=== PATIENT | male | born 1950 | race Hispanic/Latino ===

== ENCOUNTER → 2019-12-10 | Outpatient (CLI) | payer MEDICARE ==
[~2019-12-10] MED LIST: LIDOCAINE HCL 4% LTA SOL 4 ML VIAL ONE
== END | disposition home or self-care (01) ==
LOC: WHH 13:30
PROVIDERS: ATTEND Specialist
DX: S61.511A Laceration without foreign body of right wrist, initial encounter (principal); I10 Essential (primary) hypertension; E78.5 Hyperlipidemia, unspecified; Z87.891 Personal history of nicotine dependence; Z88.0 Allergy status to penicillin; X58.XXXA Exposure to other specified factors, initial encounter; Y93.89 Activity, other specified; Y92.098 Other place in other non-institutional residence as the place of occurrence of the external cause; Y99.8 Other external cause status
CPT/HCPCS: A6207; G0463

== ENCOUNTER → 2019-12-17 | Outpatient (CLI) | payer MEDICARE | END | disposition home or self-care (01) | LOC: WHH 13:30 | PROVIDERS: ATTEND Specialist | DX: S61.511D Laceration without foreign body of right wrist, subsequent encounter (principal); I10 Essential (primary) hypertension; E78.5 Hyperlipidemia, unspecified; Z87.891 Personal history of nicotine dependence; Z88.0 Allergy status to penicillin; X58.XXXD Exposure to other specified factors, subsequent encounter | CPT/HCPCS: 73100; 73120; A6207; G0463 ==

== ENCOUNTER 2019-12-24 13:30 | Outpatient (CLI) | payer MEDICARE | END 2019-12-24 14:32 | disposition home or self-care (01) | LOC: WHH 13:30 | PROVIDERS: ATTEND Specialist | DX: S61.511D Laceration without foreign body of right wrist, subsequent encounter (principal); I10 Essential (primary) hypertension; E78.5 Hyperlipidemia, unspecified; Z87.891 Personal history of nicotine dependence; Z88.0 Allergy status to penicillin; X58.XXXD Exposure to other specified factors, subsequent encounter | CPT/HCPCS: G0463 ==

== ENCOUNTER 2024-07-28 12:22 | Inpatient (IN) | payer MEDICARE, OTHER ==
[~2024-07-28] VITALS: Ht 175.3 cm; Wt 82.5 kg
[~2024-07-28 12:22] MED LIST changes: +CYCL10TA16 PO; +HYDR-3421 PO; +HYDR25TA PO; +IBUP-1493 PO; -LIDOCAINE HCL 4% LTA SOL 4 ML VIAL ONE; +LIDOP TP
--- NOTE | 2024-07-28 12:44 | EKG ---
[facility] Test Date: 2024-07-28 Test Time: 12:41:44 Pat Name: CORY PIERRE Department: [facility] Room: ED Gender: M General Labor: [id number] : 1950 Requested By: KURTIS BAILEY Order Number: [id number] Reading MD: Chandler Garcia Measurements Intervals [place] Rate: 104 P: 59 MT: 131 QRS: 59 QRSD: 85 T: 55 QT: 331 QTc: 435 Interpretive Statements Sinus tachycardia No previous ECG available for comparison Electronically Signed On 07-29-2024 06:56:45 [employer] by Chandler Garcia Please click the below link to view image of tracing.
--- NOTE | 2024-07-28 12:58 | ERN ---
General Chief Complaint: Fever Stated Complaint: WANTS CHEST X-RAYS/LUNG Time Seen by MD: 12:23 Source: patient History of Present Illness Initial Comments Patient is a 73-year-old male coming in to be evaluated for fever. Per family member and patient he has been having fever for a couple of days. He was evaluated at the urgent care and was told had an upper respiratory infection. Patient does has a history of cancer in his currently on chemotherapy. Patient was to follow up at the emergency room per MD Pugh for evaluation of a pneumonia. Allergies: Coded Allergies: No Known Allergies (Unverified Allergy, Unknown, 03/04/22) Home Meds Active Scripts Ibuprofen (Motrin/Advil) 800 Mg Tab, 800 MG PO TIDP PRN for PAIN, #30 TAB Prov:GEOVANY OLIVAS MD 03/04/22 Lidocaine (Lidoderm Patch 5%) 1 Patch Patch, 1 PATCH TP DAILY PRN for PAIN, #10 ADH.PATCH Prov:GEOVANY OLIVAS MD 03/04/22 Cyclobenzaprine HCl (Flexeril) 10 Mg Tab, 10 MG PO TID, #30 TAB Prov:GEOVANY OLIVAS MD 03/04/22 Reported Medications Hydrochlorothiazide (Hydrochlorothiazide) 25 Mg Tablet, 25 MG PO DAILY, TAB 03/04/22 Hydroxyzine HCl (Hydroxyzine HCl) 25 Mg Tablet, 25 MG PO DAILY, TAB 03/04/22 Past Medical History Past Medical History: Cancer, Hepatitis Medical History Other: ESOPHAGEAL CA, METS Past Surgical History: Other Surgical History Other: HERNIA Family History Family History: HTN Social History Social History: ETOH, Lives with family ROS Dictation CONSTITUTIONAL: chills, fever, weakness, no diaphoresis, no malaise. HEAD/FACE: No signs of trauma. EENT: No eye pain, no blurred vision, no tearing, no double vision, no ear pain, no ear discharge, no nose pain, no nasal congestion, no throat pain, no throat swelling, no mouth pain. RESPIRATORY: cough, no orthopnea, no SOB, no stridor, no wheezing. CARDIOVASCULAR: No chest pain, no edema, no palpitations, no syncope. GASTROINTESTINAL/ABDOMINAL: No abdominal pain, no constipation, no diarrhea, no nausea, no vomiting. GENITOURINARY: No abnormal discharge, no dysuria, no frequent urination, no hematuria. No complaints of pain in the genitals. MUSCULOSKELETAL: No back pain, no gout, no joint pain, no joint swelling, no muscle pain, no muscle stiffness, no neck pain. INTEGUMENTARY: No change in color, no change in hair/nails, no dryness, no lesion, no lumps, no rash. NEUROLOGICAL/PSYCH: No anxiety, not depressed, no emotional problem, no headache, no numbness, no pre-existing deficit, no history of seizures, no tremors, no weakness. HEMATOLOGIC/LYMPHATIC: Not anemic, no history of blood clots, no apparent bleeding, no bruising, glands not swollen. All Systems Negative, Except as Noted. Physical Exam Physical Exam Dictation VITAL SIGNS: Reviewed. GENERAL APPEARANCE: Alert, oriented x3, no acute distress, obese. HEAD AND FACE: Non-traumatic. EYES: PERRL, pink conjunctivas, eyelid no trauma, anterior chamber clear. EARS: Pinnas intact and no signs of trauma or erythema. Ear canals clear and no discharge. TMs no erythema. NOSE: No discharge, no bleeding. OROPHARYNX: Mouth normal, teeth no caries, tongue pink. Pharynx clear, no erythema. Tonsils no exudates, no abscesses noted. Mucous membrane moist. NECK: Supple, non-tender, no thyromegaly, no masses, no JVD, no bruits. BREAST: Deferred. CHEST: No tenderness, no crepitus, no paradoxical movement, no retractions. LUNGS: Clear, well-ventilated, symmetric, no rales, no wheezing, no rhonchi, no stridor, good breath sounds bilaterally. HEART: Regular rate, regular rhythm, no murmur, no gallops. VASCULAR: No peripheral edema. ABDOMEN: Soft, positive bowel sounds, nondistended, no guarding, nontender, no rebound, no masses no hepatomegaly, no splenomegaly, no Samuels's sign, no hernias. RECTAL: Deferred. GENITAL: Deferred. NEUROLOGICAL: Normal speech, gross motor function intact, gross sensory function intact. MUSCULOSKELETAL: Neck nontender, full range of motion, back nontender, full range of motion. EXTREMITIES: Nontender, full range of motion. SKIN: Color pink, dry, no turgor, no rash, no lacerations, no abrasions, no contusions. LYMPHATICS: Deferred. Results Laboratory and Microbiology Lab and Micro Result Laboratory Tests Test 07/28/24 12:31 07/28/24 13:09 07/28/24 14:22 Influenza Type A Antigen Negative For Type A Influenza Type B Antigen Negative For Type B SARS-CoV-2, RNA, NAAT NEGATIVE SARS CoV-2 Group A Streptococcus Rapid negative (NEGATIVE) White Blood Count 0.4 K/uL (4.8-10.8) *L Red Blood Count 3.90 MIL/uL (4.50-6.20) L Hemoglobin 11.7 g/dL (14.0-18.0) L Hematocrit 33.9 % (42-54) L Mean Corpuscular Volume 86.9 fL (79-99) Mean Corpuscular Hemoglobin 30.0 pg (27.0-33.0) Mean Corpuscular Hemoglobin Concent 34.5 g/dL (32.0-36.0) Red Cell Distribution Width 14.3 % (11.0-15.5) Platelet Count 92 K/uL (130-400) L Mean Platelet Volume 10.5 fL (7.5-10.5) Immature Granulocyte % (Auto) 0.0 % (0-1) Neutrophils (%) (Auto) 7.4 % (40.0-77.0) L Lymphocytes (%) (Auto) 78.0 % (21.0-51.0) H Monocytes (%) (Auto) 12.2 % (3.0-13.0) Eosinophils (%) (Auto) 0.0 % (0.0-8.0) Basophils (%) (Auto) 2.4 % (0.0-5.0) Neutrophils # (Auto) 0.0 K/uL (1.8-7.7) L Lymphocytes # (Auto) 0.3 K/uL (1.0-4.8) L Monocytes # (Auto) 0.1 K/uL (0.1-1.0) Eosinophils # (Auto) 0.00 K/uL (0.00-0.70) Basophils # (Auto) 0.01 K/uL (0.00-0.20) Absolute Immature Granulocyte (auto 0.00 K/uL (0-1) Segmented Neutrophils % 8 % (40-70) L Band Neutrophils % 2 % (0-2) Lymphocytes % (Manual) 69 % (22-44) H Monocytes % (Manual) 12 % (2-9) H Eosinophils % (Manual) 2 % (1-6) Basophils % (Manual) 2 % (0-2) Metamyelocytes % 1 % (0-0) H Nucleated Red Blood Cells 0.0 % (0.0-0.19) Differential Comment MANUAL DIFFERENTIAL Reactive Lymphocytes 4 % (0-0) H White Cell Morphology Comment See comments Platelet Morphology Comment DECREASED Red Blood Cell Morphology See comments Prothrombin Time 10.3 SEC (9.6-11.6) Prothromb Time International Ratio <= 0.93 (0.85-1.15) Sodium Level 123 mmol/L (136-145) L Potassium Level 3.9 mmol/L (3.5-5.1) Chloride Level 93 mmol/L (101-111) L Carbon Dioxide Level 26 mmol/L (21-32) Blood Urea Nitrogen 14 mg/dL (7-18) Creatinine 0.8 mg/dL (0.5-1.3) Glomerular Filtration Rate Calc 93 mL/min (>90) Random Glucose 116 mg/dL (70-105) H Lactic Acid Level 1.7 mmol/L (0.8-2.5) Total Calcium 8.1 mg/dL (8.5-10.1) L Total Creatine Kinase 56 U/L (21-232) Troponin I High Sensitivity 26 ng/L (4-75) B-Type Natriuretic Peptide 15 pg/mL (0-100) Procalcitonin 0.41 ng/mL (0.05-0.5) Urine Color YELLOW (YELLOW) Urine Appearance CLEAR (CLEAR) Urine pH 5.5 (5.0-8.0) Urine Specific [place] 1.029 (1.001-1.031) Urine Protein 20 mg/dL (NEGATIVE) H Urine Glucose (UA) 30 mg/dL (NEGATIVE) H Urine Ketones 10 mg/dL (NEGATIVE) H Urine Occult Blood NEGATIVE (NEGATIVE) Urine Nitrate NEGATIVE (NEGATIVE) Urine Bilirubin NEGATIVE mg/dL (NEGATIVE) Urine Urobilinogen 0.2 mg/dL (0.2-1.0) Urine Leukocyte Esterase NEGATIVE Radha/uL Urine RBC 2-5 /HPF (0-1) H Urine WBC 2-5 /HPF (0-1) H Urine Squamous Epithelial Cells RARE /HPF (0-2) Urine Bacteria None /HPF (None Seen) Urine Other Casts 2 /LPF (None Seen) Labs Reviewed?: Yes EKG/XRAY/US/CT/MRI EKG Comment 07/28/2024 time 12:41 p.m. Ventricular rate 104 Sinus tachycardia [place] [address] wave elevation or depression X-RAY Comment [facility] [address] [place] [address] IMAGING REPORT Signed PATIENT: CORY PIERRE MR#: [id number] : 1950 SEX: M AGE: 73 LOCATION: [facility] ORDER [id number] STATUS: REG ER REPORT#: [id number] SERVICE 1239 REASON: fever ORDERING PHYSICIAN: KURTIS BAILEY MD PROCEDURE: CXR1VW - CHEST 1VW CHEST 1VW REASON: fever COMPARISON: None. FINDINGS: There is 2 cm well-circumscribed mass midportion of the right lung. There is some faint nodularity in the left lung which could be some smaller nodules. There are no acute appearing infiltrates. Heart size is normal. There is a chest port in place. Be some and bony thorax appear unremarkable. IMPRESSION: 1. 2 cm nodule right midlung, there may be some smaller nodules present in the left lung. 2. No evidence of an acute infiltrate. DICTATED BY: LISA CHOWDHURY MD DATE: 07/28/24 1318 ELECTRONICALLY SIGNED BY: LISA CHOWDHURY MD DATE: 07/28/24 1322 MDM MDM: DIFFERENTIAL DIAGNOSIS: SEPSIS, HISTORY OF CANCER, IMMUNODEFICIENCY RATIONALE: TESTS CONSIDERED AND ORDERED SECONDARY TO SHARED DECISION MAKING INCLUDE: PREVIOUS OUTSIDE RECORDS REVIEWED: OLD ER VISITS. RISK OF COMPLICATION AND/OR MORBIDITY OR MORTALITY OF PATIENT MANAGEMENT: NONE MEDICATIONS-PER MEDICATION RECONCILIATION NEED FOR HOSPITALIZATION: PATIENT DOES MEET CRITERIA FOR HOSPITALIZATION. NEED FOR EMERGENCY MAJOR/MINOR SURGERY: NO THERE ARE NO SOCIAL CONCERNS WITH THIS PATIENT. PRESCRIPTION DRUG MANAGEMENT PRESCRIPTIONS WILL INCLUDE SYMPTOMATIC CARE PATIENT'S PRIOR EXTERNAL MEDICAL RECORDS FROM OTHER ER VISITS WERE REVIEWED BY ME INDICATED. PRIOR TESTING AND RESULTS FROM PREVIOUS VISITS WERE REVIEWED. PRIOR TESTS WERE TAKEN INTO ACCOUNT WITH MEDICAL DECISION MAKING AND RESOURCE UTILIZATION, INDEPENDENT HISTORIAN/HISTORIANS WERE USED TO OBTAIN COMPLETE MEDICAL HISTORY. I INDEPENDENTLY INTERPRETED THE TEST THAT WERE PERFORMED, RESULTS WERE REVIEWED BY ME AND CONSIDERED FINDINGS ON RADIOLOGY IF ORDERED. MEDICAL MANAGEMENT AND EXAMINATION INTERPRETATION DISCUSSIONS WERE HAD BY ME WITH OTHER QUALIFIED HEALTHCARE PROFESSIONALS INDICATED FOR THE PATIENT'S CARE. PATIENT WILL BE ADMITTED UNDER THE CARE OF DR. RENDON FOR ONGOING EVALUATION AND MANAGEMENT OF SEPSIS WITH IMMUNODEFICIENCY ED Course Orders Procedure Category Date Status Time 12 Lead Ekg Tracing- EKG 07/28/24 Complete Technical 12:33 Cbc With Differential LAB 07/28/24 Complete 12:33 Prothrombin Time With LAB 07/28/24 Complete INR 12:33 Blood Cult LESLEE 07/28/24 In Process 12:33 Urinalysis Profile LAB 07/28/24 Complete 12:33 Culture Urine LESLEE 07/28/24 In Process 12:33 Acetaminophen 500mg PHA 07/28/24 Complete Tab (Tylenol 500mg T 13:00 Creatine Kinase, Total LAB 07/28/24 Complete 12:33 Troponin I High LAB 07/28/24 Complete Sensitivity 12:33 B-Type Natriuretic LAB 07/28/24 Complete Peptide 12:33 Procalcitonin LAB 07/28/24 Complete 12:33 Lactic Acid LAB 07/28/24 Complete 12:33 Ceftriaxone 1g Vial PHA 07/28/24 Complete (Rocephine 1g Inj) 13:00 Basic Metabolic Panel LAB 07/28/24 Complete 12:33 Covid Rna Naat LAB 07/28/24 Complete 12:33 Influenza Type A & B, LAB 07/28/24 Complete Rapid 12:33 Febrile Agglutinins LAB 07/28/24 In Process Panel 12:33 Chest 1vw RAD 07/28/24 Resulted 12:39 Rapid (Group A Strep) LAB 07/28/24 Complete 12:41 Manual Differential LAB 07/28/24 Complete 13:09 0.9%Nacl 1000ml (Ns PHA 07/28/24 Complete 1000ml) 15:30 Current Medications Medications (Trade) Dose Ordered Sig/Miriam Route PRN Reason Start Time Stop Time Status Last Admin Dose Admin Acetaminophen (TYLenol 500MG TAB) 1,000 mg ONCE ONCE PO 07/28/24 13:00 07/28/24 13:01 DC 07/28/24 14:14 Ceftriaxone Sodium (ROCEphine 1G INJ) 1 gm ONCE ONCE IVPB 07/28/24 13:00 07/28/24 13:01 DC 07/28/24 14:09 Sodium Chloride 1,000 ml @ 0 mls/hr ONCE ONCE IV 07/28/24 15:30 07/28/24 15:31 DC 07/28/24 15:27 Vital Signs Date Time Temp Pulse Resp B/P (MAP) Pulse Ox O2 Delivery O2 Flow Rate FiO2 07/28/24 16:15 99.0 89 18 110/65 98 Room Air* 0 21 07/28/24 15:31 99.1 98 18 100/65 98 Room Air* 0 21 07/28/24 14:23 99.9 107 20 117/62 98 Room Air* 0 21 07/28/24 12:33 101.1 109 20 134/68 98 Room Air 0 Critical Care Note Comments CRITICAL CARE PROCEDURE NOTE AUTHORIZED AND PERFORMED BY: TOTAL CRITICAL CARE TIME: APPROXIMATELY 36 MINUTES DUE TO A HIGH PROBABILITY OF CLINICALLY SIGNIFICANT, LIFE THREATENING DETERIORATION, THE PATIENT REQUIRED MY HIGHEST LEVEL OF PREPAREDNESS TO INTERVENE EMERGENTLY AND I PERSONALLY SPENT THIS CRITICAL CARE TIME DIRECTLY AND PERSONALLY MANAGING THE PATIENT. THIS CRITICAL CARE TIME INCLUDED OBTAINING A HISTORY; EXAMINING THE PATIENT; PULSE OXIMETRY; ORDERING AND REVIEW OF STUDIES; ARRANGING URGENT TREATMENT WITH DEVELOPMENT OF A MANAGEMENT PLAN; EVALUATION OF PATIENT'S RESPONSE TO TREATMENT; FREQUENT REASSESSMENT; AND, DISCUSSIONS WITH OTHER PROVIDERS. THIS CRITICAL CARE TIME WAS PERFORMED TO ASSESS AND MANAGE THE HIGH PROBABILITY OF IMMINENT, LIFE-THREATENING DETERIORATION THAT COULD RESULT IN MULTI-ORGAN FAILURE. IT WAS EXCLUSIVE OF SEPARATELY BILLABLE PROCEDURES AND TREATING OTHER PATIENTS AND TEACHING TIME. PLEASE SEE MDM SECTION AND THE REST OF THE NOTE FOR FURTHER INFORMATION ON PATIENT ASSESSMENT AND TREATMENT. DX & DISP Disposition: Inpatient Decision to Admit Date: Jul 28, 2024 Decision to Admit Time: 16:32 Departure Impression: Primary Impression: Sepsis Additional Impressions: Immunodeficiency, Maintenance chemotherapy Condition: Stable Referrals: AUDRA WARD MD (PCP) Time of Disposition: 16:31 KURTIS BAILEY MD Jul 28, 2024 12:58
--- NOTE | 2024-07-28 13:22 | HMCIMG ---
CHEST 1VW REASON: fever COMPARISON: None. FINDINGS: There is 2 cm well-circumscribed mass midportion of the right lung. There is some faint nodularity in the left lung which could be some smaller nodules. There are no acute appearing infiltrates. Heart size is normal. There is a chest port in place. Be some and bony thorax appear unremarkable. IMPRESSION: 1. 2 cm nodule right midlung, there may be some smaller nodules present in the left lung. 2. No evidence of an acute infiltrate.
[2024-07-28 13:31] LABS: BASOPHILS # (AUTO) 0.01 K/uL (0.00-0.20); BASOPHILS % (AUTO) 2.4 % (0.0-5.0); HEMATOCRIT 33.9 % (42-54); LYMPHOCYTES # (AUTO) 0.3 K/uL (1.0-4.8); MEAN CORPUSCULAR HGB CONC 34.5 g/dL (32.0-36.0); MEAN CORPUSCULAR VOLUME 86.9 fL (79-99); MONOCYTES # (AUTO) 0.1 K/uL (0.1-1.0); MONOCYTES % (AUTO) 12.2 % (3.0-13.0); NEUTROPHILS % (AUTO) 7.4 % (40.0-77.0); PLATELET COUNT (AUTO) 92 K/uL (130-400); RED CELL DISTRIBUTION WIDTH 14.3 % (11.0-15.5)
[2024-07-28 13:33] LABS: SARS-CoV-2, RNA, NAAT NEGATIVE SARS CoV-2 (NEGATIVE)
[2024-07-28 13:39] LABS: INFLUENZA TYPE A Negative For Type A (NEGATIVE); INFLUENZA TYPE B Negative For Type B (NEGATIVE)
[2024-07-28 13:45] LABS: INR <= 0.93 (0.85-1.15); PROTHROMBIN TIME 10.3 SEC (9.6-11.6)
[2024-07-28 14:00] LABS: B-TYPE NATRIURETIC PEPTIDE 15 pg/mL (0-100)
[2024-07-28 14:01] LABS: WHITE BLOOD COUNT (AUTO) 0.4 K/uL (4.8-10.8)
[2024-07-28 14:02] LABS: CREATININE 0.8 mg/dL (0.5-1.3); POTASSIUM 3.9 mmol/L (3.5-5.1)
[2024-07-28] MEDS: cefTRIAXone 1G VIAL IVPB ONE (14:09)
[2024-07-28] MEDS: acetaMINOPHEN 500 MG TABLET PO ONE (14:14)
[2024-07-28 14:33] LABS: MAN.DIFF COMMENT-IMPRESSION MANUAL DIFFERENTIAL
[2024-07-28 14:34] LABS: PLATELET MORPHOLOGY COMMENT DECREASED
[2024-07-28 14:35] LABS: BAND NEUTROPHILS % (MANUAL) 2 % (0-2); BASOPHILS % (MANUAL) 2 % (0-2); EOSINOPHILS % (MANUAL) 2 % (1-6); MONOCYTES % (MANUAL) 12 % (2-9); REACTIVE LYMPHOCYTES 4 % (0-0); TOTAL CELLS COUNTED 100
[2024-07-28 14:37] LABS: METAMYELOCYTES % 1 % (0-0); SEGMENTED NEUTROPHILS % 8 % (40-70)
[2024-07-28 14:38] LABS: LYMPHOCYTES % (MANUAL) 69 % (22-44)
[2024-07-28 14:40] LABS: APPEARANCE,URINE CLEAR (CLEAR); BILIRUBIN,URINE NEGATIVE (NEGATIVE); COLOR,URINE YELLOW (YELLOW); GLUCOSE, URINE (UA) 30 mg/dL (NEGATIVE); KETONES,URINE 10 mg/dL (NEGATIVE); LEUKOCYTE ESTERASE ,URINE NEGATIVE Leu/uL (NEGATIVE); NITRATE,URINE NEGATIVE (NEGATIVE); OCCULT BLOOD,URINE NEGATIVE (NEGATIVE); PH,URINE 5.5 (5.0-8.0); PROTEIN,URINE 20 mg/dL (NEGATIVE); UROBILINOGEN,URINE 0.2 mg/dL (0.2-1.0)
[2024-07-28 14:42] LABS: ADD UA MICROSCOPIC YES
[2024-07-28 14:47] LABS: MUCUS,URINE FEW LPF (None Seen); OTHER CASTS, URINE 2 /LPF (None Seen); SQUAMOUS EPITHELIAL CELL,UR RARE /HPF (0-2)
[2024-07-28] MEDS: 0.9%NACL 1000ML 1,000 ML IV ONE (15:27)
[2024-07-28] MEDS ORDERED: IpraTROPium/alBUTERol SULFATE 3 ML SOLUTION IH PRN (17:00)
[2024-07-28] MEDS ORDERED: cefTRIAXone 1G VIAL IVPB SCH (17:00)
--- NOTE | 2024-07-28 17:05 | NUR ---
SPOKE TO DR. ANGELICA AVILES (PTS ONCOLOGIST IN [place]) PER ANSWERING SERVICE, SHE WILL SUBMIT REQUEST FOR PHYSCIAN TO COME SEE PT.
[2024-07-28] MEDS: AZITHROMYCIN 500MG+NS 250ML 250 ML IVPB SCH (17:38)
[2024-07-28] MEDS: IpraTROPium/alBUTERol SULFATE 3 ML SOLUTION IH SCH (19:22)
[2024-07-28 19:28] VITALS: PULSE 87; RESP 18
[2024-07-28 19:29] VITALS: PULSE 87; RESP 18; O2SAT 100
[2024-07-28] MEDS: acetaMINOPHEN 325 MG TAB PO PRN (21:46)
[2024-07-28] MEDS ORDERED: acetaMINOPHEN 325 MG TAB PO PRN (22:00)
[2024-07-28] MEDS ORDERED: ondanSETRON 4MG INJ IVP PRN (22:00)
--- NOTE | 2024-07-28 22:09 | HP ---
HISTORY AND PHYSICAL NOTE DATE OF CONSULTATION: 07/28/24 REASON FOR CONSULTATION: fever cough and expectoration HISTORY OF PRESENT ILLNESS: Patient is a 73-year-old male coming in to be evaluated for fever. Per family member and patient he has been having fever for a couple of days. He was evaluated at the urgent care and was told had an upper respiratory infection. Patient does has a history of cancer in his currently on chemotherapy. Patient was to follow up at the emergency room per MD Pugh for evaluation of a pneumonia. Allergies: Coded Allergies: No Known Allergies (Unverified Allergy, Unknown, 03/04/22) Home Meds Active Scripts Ibuprofen (Motrin/Advil) 800 Mg Tab, 800 MG PO TIDP PRN for PAIN, #30 TAB Prov:GEOVANY OLIVAS MD 03/04/22 Lidocaine (Lidoderm Patch 5%) 1 Patch Patch, 1 PATCH TP DAILY PRN for PAIN, #10 ADH.PATCH Prov:GEOVANY OLIVAS MD 03/04/22 Cyclobenzaprine HCl (Flexeril) 10 Mg Tab, 10 MG PO TID, #30 TAB Prov:GEOVANY OLIVAS MD 03/04/22 Reported Medications Hydrochlorothiazide (Hydrochlorothiazide) 25 Mg Tablet, 25 MG PO DAILY, TAB 03/04/22 Hydroxyzine HCl (Hydroxyzine HCl) 25 Mg Tablet, 25 MG PO DAILY, TAB 03/04/22 Past History Past Medical History Past Medical History: Cancer, Hepatitis Medical History Other: ESOPHAGEAL CA, METS Past Surgical History: Other Surgical History Other: HERNIA Family History Family History: HTN Social History Social History: ETOH, Lives with family Review of Systems ROS Dictation CONSTITUTIONAL: chills, fever, weakness, no diaphoresis, no malaise. ALLERGIES: Coded Allergies: No Known Allergies (Unverified Allergy, Unknown, 03/04/22) HOME MEDS: Active Scripts Ibuprofen (Motrin/Advil) 800 Mg Tab, 800 MG PO TIDP PRN for PAIN, #30 TAB Prov:GEOVANY OLIVAS MD 03/04/22 Lidocaine (Lidoderm Patch 5%) 1 Patch Patch, 1 PATCH TP DAILY PRN for PAIN, #10 ADH.PATCH Prov:GEOVANY OLIVAS MD 03/04/22 Cyclobenzaprine HCl (Flexeril) 10 Mg Tab, 10 MG PO TID, #30 TAB Prov:GEOVANY OLIVAS MD 03/04/22 Reported Medications Hydrochlorothiazide (Hydrochlorothiazide) 25 Mg Tablet, 25 MG PO DAILY, TAB 03/04/22 Hydroxyzine HCl (Hydroxyzine HCl) 25 Mg Tablet, 25 MG PO DAILY, TAB 03/04/22 INPATIENT MEDS: Current Medications Medications Dose Ordered Sig/Miriam Start Time Stop Time Status Last Admin Albuterol 1 udvial [id number] 07/28/24 18:00 08/27/24 17:59 07/28/24 19:22 Albuterol 1 udvial Q4HPRN PRN 07/28/24 17:00 08/27/24 16:59 Azithromycin 250 ml @ 250 mls/hr Q24H 07/28/24 17:00 08/07/24 16:59 07/28/24 17:38 Enoxaparin Sodium 40 mg DAILY 07/29/24 09:00 08/28/24 08:59 Ceftriaxone Sodium 1 gm Q24H 07/29/24 13:00 08/08/24 12:59 Hydromorphone HCl 0.5 mg Q3H3 PRN 07/28/24 22:00 08/02/24 21:59 Acetaminophen 650 mg Q6H PRN 07/28/24 22:00 08/27/24 21:59 07/28/24 21:46 Acetaminophen 650 mg Q6H PRN 07/28/24 22:00 08/27/24 21:59 Ondansetron HCl 4 mg Q6H PRN 07/28/24 22:00 08/27/24 21:59 VITAL SIGNS Vital Signs Date Time Temp Pulse Resp B/P (MAP) Pulse Ox O2 Delivery O2 Flow Rate FiO2 07/28/24 20:31 99.3 91 20 118/54 98 Room Air* 0 07/28/24 19:29 87 18 N/A Room Air 07/28/24 19:28 87 18 07/28/24 18:00 99.0 89 18 114/70 97 Room Air* 0 07/28/24 16:15 99.0 89 18 110/65 98 Room Air* 0 07/28/24 15:31 99.1 98 18 100/65 98 Room Air* 0 07/28/24 14:23 99.9 107 20 117/62 98 Room Air* 0 21 07/28/24 12:33 101.1 109 20 134/68 98 Room Air 0 PHYSICAL EXAM HEAD/FACE: No signs of trauma. EENT: No eye pain, no blurred vision, no tearing, no double vision, no ear pain, no ear discharge, no nose pain, no nasal congestion, no throat pain, no throat swelling, no mouth pain. RESPIRATORY: cough, no orthopnea, no SOB, no stridor, no wheezing. CARDIOVASCULAR: No chest pain, no edema, no palpitations, no syncope. GASTROINTESTINAL/ABDOMINAL: No abdominal pain, no constipation, no diarrhea, no nausea, no vomiting. GENITOURINARY: No abnormal discharge, no dysuria, no frequent urination, no hematuria. No complaints of pain in the genitals. MUSCULOSKELETAL: No back pain, no gout, no joint pain, no joint swelling, no muscle pain, no muscle stiffness, no neck pain. INTEGUMENTARY: No change in color, no change in hair/nails, no dryness, no lesion, no lumps, no rash. NEUROLOGICAL/PSYCH: No anxiety, not depressed, no emotional problem, no headache, no numbness, no pre-existing deficit, no history of seizures, no tremors, no weakness. HEMATOLOGIC/LYMPHATIC: Not anemic, no history of blood clots, no apparent bleeding, no bruising, glands not swollen. All Systems Negative, Except as Noted. LABORATORY RESULTS Laboratory Tests 07/28/24 12:31: Influenza Type A Antigen Negative For Type A, Influenza Type B Antigen Negative For Type B, SARS-CoV-2, RNA, NAAT NEGATIVE SARS CoV-2, Group A Streptococcus Rapid negative 07/28/24 13:09: White Blood Count 0.4, Red Blood Count 3.90, Hemoglobin 11.7, Hematocrit 33.9, Mean Corpuscular Volume 86.9, Mean Corpuscular Hemoglobin 30.0, Mean Corpuscular Hemoglobin Concent 34.5, Red Cell Distribution Width 14.3, Platelet Count 92, Mean Platelet Volume 10.5, Immature Granulocyte % (Auto) 0.0, Neutrophils (%) (Auto) 7.4, Lymphocytes (%) (Auto) 78.0, Monocytes (%) (Auto) 12.2, Eosinophils (%) (Auto) 0.0, Basophils (%) (Auto) 2.4, Neutrophils # (Auto) 0.0, Lymphocytes # (Auto) 0.3, Monocytes # (Auto) 0.1, Eosinophils # (Auto) 0.00, Basophils # ( Auto) 0.01, Absolute Immature Granulocyte (auto 0.00, Segmented Neutrophils % 8, Band Neutrophils % 2, Lymphocytes % (Manual) 69, Monocytes % (Manual) 12, Eosinophils % (Manual) 2, Basophils % (Manual) 2, Metamyelocytes % 1, Nucleated Red Blood Cells 0.0, Differential Comment MANUAL DIFFERENTIAL, Reactive Lymphocytes 4, White Cell Morphology Comment See comments, Platelet Morphology Comment DECREASED, Red Blood Cell Morphology See comments, Prothrombin Time 10.3, Prothromb Time International Ratio <= 0.93, Sodium Level 123, Potassium Level 3.9, Chloride Level 93, Carbon Dioxide Level 26, Blood Urea Nitrogen 14, Creatinine 0.8, Glomerular Filtration Rate Calc 93, Random Glucose 116, Lactic Acid Level 1.7, Total Calcium 8.1, Total Creatine Kinase 56, Troponin I High Sensitivity 26, B-Type Natriuretic Peptide 15, Procalcitonin 0.41 07/28/24 14:22: Urine Color YELLOW, Urine Appearance CLEAR, Urine pH 5.5, Urine Specific [place] 1.029, Urine Protein 20, Urine Glucose (UA) 30, Urine Ketones 10, Urine Occult Blood NEGATIVE, Urine Nitrate NEGATIVE, Urine Bilirubin NEGATIVE, Urine Urobilinogen 0.2, Urine Leukocyte Esterase NEGATIVE, Urine RBC 2-5, Urine WBC 2- 5, Urine Squamous Epithelial Cells RARE, Urine Bacteria None, Urine Other Casts 2 PROBLEM LIST: (1) Pneumonia ICD Codes: J18.9 - Pneumonia, unspecified organism (2) Sepsis ICD Codes: A41.9 - Sepsis, unspecified organism (3) Immunodeficiency ICD Codes: D84.9 - Immunodeficiency, unspecified (4) Maintenance chemotherapy ICD Codes: Z51.11 - Encounter for antineoplastic chemotherapy PLAN IV antibiotics hydrate consult oncology LATRICIA PETERSON MD Jul 28, 2024 22:09
[2024-07-28 23:47] VITALS: PULSE 89; RESP 18
[2024-07-29] VITALS (11 sets, daily range): BP systolic 114–134; BP diastolic 57–79; PULSE 78–99; RESP 17–20; TEMP 98.3–99.6; O2SAT 97–99
[2024-07-29 07:22] LABS: HEMATOCRIT 30.6 % (42-54); LYMPHOCYTES # (AUTO) 0.6 K/uL (1.0-4.8); LYMPHOCYTES % (AUTO) 80.8 % (21.0-51.0); MEAN CORPUSCULAR HEMOGLOBIN 30.4 pg (27.0-33.0); MEAN CORPUSCULAR HGB CONC 34.6 g/dL (32.0-36.0); MEAN CORPUSCULAR VOLUME 87.7 fL (79-99); MONOCYTES # (AUTO) 0.1 K/uL (0.1-1.0); MONOCYTES % (AUTO) 15.4 % (3.0-13.0); NEUTROPHILS % (AUTO) 3.8 % (40.0-77.0); PLATELET COUNT (AUTO) 85 K/uL (130-400); RED BLOOD CELL COUNT(AUTO) 3.49 MIL/uL (4.50-6.20); RED CELL DISTRIBUTION WIDTH 14.1 % (11.0-15.5)
[2024-07-29 07:39] LABS: CREATININE 0.6 mg/dL (0.5-1.3)
[2024-07-29 07:40] LABS: WHITE BLOOD COUNT (AUTO) 0.8 K/uL (4.8-10.8)
--- NOTE | 2024-07-29 08:20 | CONS ---
[facility] CONSULTATION NOTE Date Patient Seen: Jul 29, 2024 Time of Visit: 08:20 Supervising Physician: Zheng Gamez MD Reason for Consultation: Lung CA and Pneumonia Primary Care Physician: Joe Mora MD Outpatient Specialists: Inpatient Consults: Domingo Silverio MD PROBLEM LIST: Sepsis Neutropenic fever Severe neutropenia, POA Esophageal CA with Mets Immunodeficiency Maintenance chemotherapy suspected community acquired pneumonia POA History of hepatitis Hypertension Chronic Generalized rash to face and scalp worsening, POA HPI: This is a 73-year-old male with a past medical history of esophageal cancer with metastasis, with history of chemotherapy and immunocompromise, hypertension, and hepatitis who presented to the ED for evaluation of fever for a couple of days. As per patient was evaluated at a urgent care clinic and was said he had an upper respiratory infection and sent home. As per patient's they called MD Pugh for evaluation of a pneumonia and they recommended for patient to come in to the ED for further workup. Patient was admitted for septic shock to the ICU we were consulted by primary team for critical care management. Chest x-ray 2 cm nodule right midlung there may be some smaller nodules present in the left lung. No evidence of acute infiltrate. Multiple bilateral pulmonary nodules consistent with metastatic disease. Otherwise unremarkable exam. On CT chest multiple bilateral pulmonary nodules consistent with metastatic disease seen. Otherwise unremarkable exam. On laboratory WBCs are 0.8 H&H is 10.6/30.6 platelet count is 85 K. neutrophils of 3.8. Pending oncology consult. Na 126 chloride 97 kidneys are good creatinine 0.6 GFR 102 total calcium 7.7. For neutropenic fever we will cover with broad-spectrum antibiotics for now and consult ID. PAST MEDICAL HX: see above PAST SURGICAL HX: noncontributory SOCIAL HISTORY: No tobacco, ETOH, or illicit drug use Coded Allergies: No Known Allergies (Unverified Allergy, Unknown, 03/04/22) REVIEW OF SYSTEMS: 12 point ROS reviewed with patient. Pertinent positives mentioned above. Otherwise negative. PHYSICAL EXAM: GENERAL: alert, weak, awake oriented x 3 HEENT: EOMI, Sclera non icteric, moist mucosa , generalized rash to face and scalp NECK: Supple, no JVD, trachea midline LUNGS: diminished breath sounds bilaterally. No wheezes HEART: Regular rate and rhythm. Normal S1 and S2, without murmurs ABD: Abdomen soft, nontender. Bowel sounds present EXT: No clubbing cyanosis or edema NEURO: Alert and oriented to person, follows commands Vital Signs (last 8hr) Date Time Temp Pulse Resp B/P (MAP) Pulse Ox O2 Delivery O2 Flow Rate FiO2 07/29/24 06:40 84 18 N/A Room Air 21 07/29/24 06:40 84 18 07/29/24 03:42 99.1 92 20 118/54 98 Room Air* 0 21 LABS: Hematology Labs: Test 07/29/24 06:59 07/28/24 13:09 Range/Units White Blood Count 0.8 #*L 4.8-10.8 K/uL Red Blood Count 3.49 L 4.50-6.20 MIL/uL Hemoglobin 10.6 L 14.0-18.0 g/dL Hematocrit 30.6 L 42-54 % Mean Corpuscular Volume 87.7 79-99 fL Mean Corpuscular Hemoglobin 30.4 27.0-33.0 pg Mean Corpuscular Hemoglobin Concent 34.6 32.0-36.0 g/dL Red Cell Distribution Width 14.1 11.0-15.5 % Platelet Count 85 L 130-400 K/uL Mean Platelet Volume 10.3 7.5-10.5 fL Immature Granulocyte % (Auto) 0.0 0-1 % Neutrophils (%) (Auto) 3.8 L 40.0-77.0 % Lymphocytes (%) (Auto) 80.8 H 21.0-51.0 % Monocytes (%) (Auto) 15.4 H 3.0-13.0 % Eosinophils (%) (Auto) 0.0 0.0-8.0 % Basophils (%) (Auto) 0.0 0.0-5.0 % Neutrophils # (Auto) 0.0 L 1.8-7.7 K/uL Lymphocytes # (Auto) 0.6 L 1.0-4.8 K/uL Monocytes # (Auto) 0.1 0.1-1.0 K/uL Eosinophils # (Auto) 0.00 0.00-0.70 K/uL Basophils # (Auto) 0.00 0.00-0.20 K/uL Absolute Immature Granulocyte (auto 0.00 0-1 K/uL Nucleated Red Blood Cells 0.0 0.0-0.19 % Segmented Neutrophils % 8 L 40-70 % Band Neutrophils % 2 0-2 % Lymphocytes % (Manual) 69 H 22-44 % Monocytes % (Manual) 12 H 2-9 % Eosinophils % (Manual) 2 1-6 % Basophils % (Manual) 2 0-2 % Metamyelocytes % 1 H 0-0 % Differential Comment MANUAL DIFFERENTIAL Reactive Lymphocytes 4 H 0-0 % Platelet Morphology Comment DECREASED Red Blood Cell Morphology See comments Chemistry Labs: Test 07/29/24 06:59 07/28/24 13:09 Range/Units Sodium Level 126 L 136-145 mmol/L Potassium Level 4.0 3.5-5.1 mmol/L Chloride Level 97 L 101-111 mmol/L Carbon Dioxide Level 24 21-32 mmol/L Blood Urea Nitrogen 9 7-18 mg/dL Creatinine 0.6 0.5-1.3 mg/dL Glomerular Filtration Rate Calc 102 >90 mL/min Random Glucose 103 70-105 mg/dL Total Calcium 7.7 L 8.5-10.1 mg/dL Lactic Acid Level 1.7 0.8-2.5 mmol/L Total Creatine Kinase 56 21-232 U/L Troponin I High Sensitivity 26 4-75 ng/L B-Type Natriuretic Peptide 15 0-100 pg/mL Procalcitonin 0.41 0.05-0.5 ng/mL Coagulation Labs: Test 07/28/24 13:09 Range/Units Prothrombin Time 10.3 9.6-11.6 SEC Prothromb Time International Ratio <= 0.93 0.85-1.15 DIAGNOSTICS / RADIOLOGY RESULTS: PATIENT: CORY PIERRE MR#: [id number] : 1950 SEX: M AGE: 73 LOCATION: [facility] ORDER 2 STATUS: ADM IN REPORT#: [id number] SERVICE 1 REASON: rule out ILD ORDERING PHYSICIAN: LATOYA BLACK PROCEDURE: CHEST WO - CT CHEST W/O CONTRAST CT CHEST W/O CONTRAST REASON: rule out ILD COMPARISON: None. TECHNIQUE: Multiple sequential axial images of the chest were obtained from the thoracic inlet through the upper pole of the kidneys without intravenous contrast administration. FINDINGS: There are multiple bilateral pulmonary nodules consistent with metastatic disease. Many of the nodules are subcentimeter in size, there are several additional nodules between 1 and 2 cm. Lungs appear otherwise unremarkable. There is normal-appearing pulmonary interstitial pattern. There are no acute appearing infiltrates. There are no pleural effusions. Hilar and mediastinal structures appear unremarkable. Chest wall structures appear normal as do visualized upper abdominal structures. There are no focal osseous lesions. IMPRESSION: 1. Multiple bilateral pulmonary nodules consistent with metastatic disease. 2. Otherwise unremarkable exam. CT was performed with one or more following dose reduction techniques: automated exposure control, adjustment of the mA and kv according to patient's size, or use of a iterative reconstruction technique. DICTATED BY: LISA CHOWDHURY MD DATE: 07/29/24 1154 ELECTRONICALLY SIGNED BY: LISA CHOWDHURY MD DATE: 07/29/24 1201 PLAN Follow oncology recommendations Broad spectrum antibiotics follow ID recs panculture Negative for thyphoid, Influenza A and B, covid and strep CT of the chest CBC CMP TSH NEURO: Minimize central acting medications as possible. Maintain fall precautions, adequate lighting during the day PULMONARY: Supplemental 02 as needed. Maintain aspiration precautions at all times CARDIOVASCULAR: Follow hemodynamics. Vital signs per facility protocol GI & NUTRITION: Continue with nutritional support. Continue stool softeners and laxatives as needed. KIDNEYS & ELECTROLYTES: Strict monitoring of intake, output and overall fluid balance. Avoid nephrotoxic medications to the extent possible. Medications to be dosed according to renal function. Monitor electrolytes and replace as needed ENDOCRINE: Maintain blood glucose between 100-180 at all times. Hypoglycemia protocol in place INFECTIOUS DISEASE: Trend temperature, WBC and procalcitonin level Follow cultures, deescalate antibiotics as soon as possible. Panculture if new onset fever ONCOLOGY/HEMATOLOGY/COAGULATION: Monitor for s/s of bleeding Monitor hemoglobin, coagulation studies as needed SKIN: Pressure ulcer prevention per facility protocol Specialty mattress ORTHO/REHAB: Continue PT/OT Prophylaxis: Continue GI and DVT prophylaxis Code Status: Full Resuscitation Disposition: TBD Other: Total patient care time exceeds 35 minutes excluding all procedures. LATOYA BLACK Jul 29, 2024 08:20
--- NOTE | 2024-07-29 09:13 | NUR ---
RECEIVED A CALL FROM [facility], DR. AVILES DOES NOT COME TO [facility], SHE WILL RELAY THE MESSAGE TO DR. MARIE OR DR. SALDAÑA TO COME SEE PT.
[2024-07-29] MEDS: ENOXAPARIN SODIUM 40 MG/0.4 ML SYRINGE SQ SCH (09:54)
[2024-07-29] MEDS: SODIUM CHLORIDE 3% FOR INHALATION 4 ML/AMP VIAL.NEB IH ONE ×3 (11:24→23:05)
--- NOTE | 2024-07-29 12:01 | HMCIMG ---
CT CHEST W/O CONTRAST REASON: rule out ILD COMPARISON: None. TECHNIQUE: Multiple sequential axial images of the chest were obtained from the thoracic inlet through the upper pole of the kidneys without intravenous contrast administration. FINDINGS: There are multiple bilateral pulmonary nodules consistent with metastatic disease. Many of the nodules are subcentimeter in size, there are several additional nodules between 1 and 2 cm. Lungs appear otherwise unremarkable. There is normal-appearing pulmonary interstitial pattern. There are no acute appearing infiltrates. There are no pleural effusions. Hilar and mediastinal structures appear unremarkable. Chest wall structures appear normal as do visualized upper abdominal structures. There are no focal osseous lesions. IMPRESSION: 1. Multiple bilateral pulmonary nodules consistent with metastatic disease. 2. Otherwise unremarkable exam. CT was performed with one or more following dose reduction techniques: automated exposure control, adjustment of the mA and kv according to patient's size, or use of a iterative reconstruction technique.
--- NOTE | 2024-07-29 12:06 | NUR ---
DCP: HOME met with pt and his Babak [phone]. Pt is a retired electrician chief and remains active and independent. transports as needed. Pt able to complete ADLS on his own, uses no DME or in home care services. No HH or HD services needed at this time. PCP is Andrew Mora and uses [facility] on [facility] for rx. Pt denies need for SNF, states [place]. Addendum: 07/29/24 at 1209 by THI TAYLOR Amended: Links added.
[2024-07-29] MEDS: CEFTRIAXONE 2GM VIAL IVPB SCH (12:42)
[2024-07-29] MEDS ORDERED: cefTRIAXone 1G VIAL IVPB SCH (13:00)
[2024-07-29] MEDS ORDERED: VANCOMYCIN PROTOCOL PER PHARMACY IV SCH (14:00)
[2024-07-29] MEDS ORDERED: VANCOMYCIN 2GM/500 ML BAG 500 ML IV ONE (14:30)
[2024-07-29] MEDS: ceFEPime HCL 2 GM VIAL IVPB SCH (14:38)
--- NOTE | 2024-07-29 17:34 | NUR ---
GAVE REPORT TO IHSAN DOMINIQUE
--- NOTE | 2024-07-29 22:41 | PN ---
PROGRESS NOTE PROGRESS NOTE DATE OF PROGRESS NOTE: 07/29/24 SUBJECTIVE: No new complaints VITAL SIGNS Vital Signs Date Time Temp Pulse Resp B/P (MAP) Pulse Ox O2 Delivery O2 Flow Rate FiO2 07/29/24 20:00 99.7 88 19 133/65 99 Room Air 07/29/24 19:41 21 07/29/24 15:27 0.0 PHYSICAL EXAM: HEAD/FACE: No signs of trauma. EENT: No eye pain, no blurred vision, no tearing, no double vision, no ear pain, no ear discharge, no nose pain, no nasal congestion, no throat pain, no throat swelling, no mouth pain. RESPIRATORY: cough, no orthopnea, no SOB, no stridor, no wheezing. CARDIOVASCULAR: No chest pain, no edema, no palpitations, no syncope. GASTROINTESTINAL/ABDOMINAL: No abdominal pain, no constipation, no diarrhea, no nausea, no vomiting. GENITOURINARY: No abnormal discharge, no dysuria, no frequent urination, no hematuria. No complaints of pain in the genitals. MUSCULOSKELETAL: No back pain, no gout, no joint pain, no joint swelling, no muscle pain, no muscle stiffness, no neck pain. INTEGUMENTARY: No change in color, no change in hair/nails, no dryness, no lesion, no lumps, no rash. NEUROLOGICAL/PSYCH: No anxiety, not depressed, no emotional problem, no headache, no numbness, no pre-existing deficit, no history of seizures, no tremors, no weakness. HEMATOLOGIC/LYMPHATIC: Not anemic, no history of blood clots, no apparent bleeding, no bruising, glands not swollen. All Systems Negative, Except as Noted. LABORATORY: Laboratory Result(s) Test 07/29/24 06:59 White Blood Count 0.8 K/uL (4.8-10.8) Red Blood Count 3.49 MIL/uL (4.50-6.20) Hemoglobin 10.6 g/dL (14.0-18.0) Hematocrit 30.6 % (42-54) Mean Corpuscular Volume 87.7 fL (79-99) Mean Corpuscular Hemoglobin 30.4 pg (27.0-33.0) Mean Corpuscular Hemoglobin Concent 34.6 g/dL (32.0-36.0) Red Cell Distribution Width 14.1 % (11.0-15.5) Platelet Count 85 K/uL (130-400) Mean Platelet Volume 10.3 fL (7.5-10.5) Immature Granulocyte % (Auto) 0.0 % (0-1) Neutrophils (%) (Auto) 3.8 % (40.0-77.0) Lymphocytes (%) (Auto) 80.8 % (21.0-51.0) Monocytes (%) (Auto) 15.4 % (3.0-13.0) Eosinophils (%) (Auto) 0.0 % (0.0-8.0) Basophils (%) (Auto) 0.0 % (0.0-5.0) Neutrophils # (Auto) 0.0 K/uL (1.8-7.7) Lymphocytes # (Auto) 0.6 K/uL (1.0-4.8) Monocytes # (Auto) 0.1 K/uL (0.1-1.0) Eosinophils # (Auto) 0.00 K/uL (0.00-0.70) Basophils # (Auto) 0.00 K/uL (0.00-0.20) Absolute Immature Granulocyte (auto 0.00 K/uL (0-1) Nucleated Red Blood Cells 0.0 % (0.0-0.19) White Cell Morphology Comment See comments Sodium Level 126 mmol/L (136-145) Potassium Level 4.0 mmol/L (3.5-5.1) Chloride Level 97 mmol/L (101-111) Carbon Dioxide Level 24 mmol/L (21-32) Blood Urea Nitrogen 9 mg/dL (7-18) Creatinine 0.6 mg/dL (0.5-1.3) Glomerular Filtration Rate Calc 102 mL/min (>90) Random Glucose 103 mg/dL (70-105) Total Calcium 7.7 mg/dL (8.5-10.1) INPATIENT MEDS: Current Medications Medications Dose Ordered Sig/Miriam Start Time Stop Time Status Last Admin Albuterol 1 udvial [id number] 07/28/24 18:00 08/27/24 17:59 07/29/24 19:36 Albuterol 1 udvial Q4HPRN PRN 07/28/24 17:00 08/27/24 16:59 Azithromycin 250 ml @ 250 mls/hr Q24H 2/17/25 17:00 08/02/24 16:59 07/29/24 17:29 Enoxaparin Sodium 40 mg DAILY 07/29/24 09:00 08/28/24 08:59 07/29/24 09:54 Hydromorphone HCl 0.5 mg Q3H3 PRN 07/28/24 22:00 08/02/24 21:59 Acetaminophen 650 mg Q6H PRN 07/28/24 22:00 08/27/24 21:59 07/29/24 16:27 Acetaminophen 650 mg Q6H PRN 07/28/24 22:00 08/27/24 21:59 Ondansetron HCl 4 mg Q6H PRN 07/28/24 22:00 08/27/24 21:59 Cefepime HCl 2 gm Q12H 07/29/24 14:00 08/08/24 13:59 07/29/24 14:38 Fluconazole/ Sodium Chloride 400 mg Q24H 07/29/24 14:00 08/08/24 13:59 07/29/24 15:20 PROBLEM LIST: (1) Pneumonia ICD Code: J18.9 - Pneumonia, unspecified organism (2) Sepsis ICD Code: A41.9 - Sepsis, unspecified organism (3) Immunodeficiency ICD Code: D84.9 - Immunodeficiency, unspecified (4) Maintenance chemotherapy ICD Code: Z51.11 - Encounter for antineoplastic chemotherapy PLAN: IV antibiotics hydrate consult oncologyAnd pulmonology Sepsis Neutropenic fever Severe neutropenia, POA Esophageal CA with Mets Immunodeficiency Maintenance chemotherapy suspected community acquired pneumonia POA History of hepatitis Hypertension Chronic Generalized rash to face and scalp worsening, POA LATRICIA PETERSON MD Jul 29, 2024 22:41
[2024-07-30] VITALS (15 sets, daily range): BP systolic 114–143; BP diastolic 65–77; PULSE 84–100; RESP 16–20; TEMP 98.1–99.7; O2SAT 96–99
[2024-07-30] MEDS ORDERED: VANCOMYCIN 1.5 GM/250 ML BAG 250 ML IV SCH (02:30)
[2024-07-30 05:15] LABS: BASOPHILS # (AUTO) 0.01 K/uL (0.00-0.20); HEMATOCRIT 29.1 % (42-54); LYMPHOCYTES # (AUTO) 0.6 K/uL (1.0-4.8); LYMPHOCYTES % (AUTO) 60.6 % (21.0-51.0); MEAN CORPUSCULAR HEMOGLOBIN 30.2 pg (27.0-33.0); MEAN CORPUSCULAR HGB CONC 34.4 g/dL (32.0-36.0); MEAN CORPUSCULAR VOLUME 87.9 fL (79-99); MONOCYTES # (AUTO) 0.4 K/uL (0.1-1.0); MONOCYTES % (AUTO) 35.6 % (3.0-13.0); NEUTROPHILS % (AUTO) 2.8 % (40.0-77.0); PLATELET COUNT (AUTO) 105 K/uL (130-400); RED BLOOD CELL COUNT(AUTO) 3.31 MIL/uL (4.50-6.20); RED CELL DISTRIBUTION WIDTH 13.9 % (11.0-15.5)
[2024-07-30 05:35] LABS: ALBUMIN 2.5 g/dL (3.5-5.0); BILIRUBIN,TOTAL 0.6 mg/dL (0.2-1.0); CREATININE 0.6 mg/dL (0.5-1.3); POTASSIUM 3.4 mmol/L (3.5-5.1); THYROID STIMULATING HORMONE 11.53 uIU/mL (0.36-3.74); TOTAL PROTEIN, SERUM 7.3 g/dL (6.0-8.3)
--- NOTE | 2024-07-30 10:57 | NUR ---
Nutritional Note: Visited pt with at bedside. Pt reported not having nausea or vomiting, difficulty swallowing, and no food allergies. Pt reported lactose intolerance. Pt reported last PCP visit was 3 weeks ago and was currently on chemotherapy. Pt reported altered taste buds due to recent change of chemotherapy a week ago, so PO intake has significantly decreased to <10%. Pt stated he has appetite, but all food tastes different and not pleasant. Pt reported breakfast tray PO <10% due to poor taste. Pt reported UBW of 190 lbs and recently lost 3 lbs in one week since starting new chemo. Pt reported last BM 07/29/24 was loose and experienced diarrhea for the past 3 days. Pt reported concern with feeling constipated due to no BM in the morning. Verbal nutrition education was provided on cancer effect in weight loss and need to maintain weight by eating regularly. Pt was agreeable to a chilled Ensure Max supplement in vanilla and Prostat Jello to increase oral intake. Pt is high risk for PCM due to poor oral intake and recent weight loss of 3 lbs in a week. Pt adherence expectance is good. Nutritional concerns: <25% PO intake, predicted weight loss, loose bowel movement. Recommendations: - Continue Regular Diet - Order chilled Ensure Max supplement qd TID all trays - Order Prostat Jello 30 ml TID all trays -Consider MVI QD -Monitor PO intake -Encourage PO intake as able -If poor PO intake continues consider appetite stimulant -Monitor BM -Monitor electrolytes -Replenish electrolytes per protocol -Monitor wts -Reweigh as able -Monitor care goals RD to follow + available for consult per protocol Signed by Dietetic Student Fabiana Garcias Addendum: 07/30/24 at [address] Amended: Links added.
--- NOTE | 2024-07-30 13:19 | PN ---
[facility] PROGRESS NOTE Date Patient Seen: Jul 30, 2024 Time of Visit: 13:18 Supervising Physician: Dr. Ehsan Schroeder Primary Care Physician: Joe Mora MD Outpatient Specialists: Inpatient Consults: Domingo Silverio MD PROBLEM LIST: Sepsis Neutropenic fever Severe neutropenia, POA Esophageal CA with Mets Immunodeficiency Maintenance chemotherapy suspected community acquired pneumonia POA History of hepatitis Hypertension Chronic Generalized rash to face and scalp worsening, POA INTERVAL HISTORY: Patient evaluated at bedside with his present. Patient was resting comfortably at this time, he is currently on room air. Patient's chest x-ray and CT scan both show no obvious infiltrates, no acute pulmonary process. Patient does have pulmonary nodules, likely metastases secondary to his esop hageal cancer. Patient was on neutropenic precautions at this time, white count of 1.0 today, hemoglobin of 10.0, platelets of 105. Patient has pending hematology consultation with Dr. Shabazz. Patient denies any chest pain, no shortness of breath, denies any nausea or vomiting. Patient is tolerating his diet well. We will continue to follow the patient while on the med for, pending recommendations from Hematology at this time. REVIEW OF SYSTEMS: 12 point ROS reviewed with patient. Pertinent positives mentioned above. Otherwise negative. PHYSICAL EXAM: GENERAL: alert, weak, awake oriented x 3 HEENT: EOMI, Sclera non icteric, moist mucosa , generalized rash to face and scalp NECK: Supple, no JVD, trachea midline LUNGS: diminished breath sounds bilaterally. No wheezes HEART: Regular rate and rhythm. Normal S1 and S2, without murmurs ABD: Abdomen soft, nontender. Bowel sounds present EXT: No clubbing cyanosis or edema NEURO: Alert and oriented to person, follows commands Vital Signs (last 8hr) Date Time Temp Pulse Resp B/P (MAP) Pulse Ox O2 Delivery O2 Flow Rate FiO2 07/30/24 11:07 98.1 96 16 137/65 96 Room Air 07/30/24 10:59 88 18 07/30/24 08:12 98.4 97 20 135/73 96 Room Air 07/30/24 06:32 100 18 N/A Room Air 21 07/30/24 06:30 100 18 LABS: Hematology Labs: Test 07/30/24 04:40 07/29/24 06:59 Range/Units White Blood Count 1.0 *L 4.8-10.8 K/uL Red Blood Count 3.31 L 4.50-6.20 MIL/uL Hemoglobin 10.0 L 14.0-18.0 g/dL Hematocrit 29.1 L 42-54 % Mean Corpuscular Volume 87.9 79-99 fL Mean Corpuscular Hemoglobin 30.2 27.0-33.0 pg Mean Corpuscular Hemoglobin Concent 34.4 32.0-36.0 g/dL Red Cell Distribution Width 13.9 11.0-15.5 % Platelet Count 105 L 130-400 K/uL Mean Platelet Volume 9.9 7.5-10.5 fL Immature Granulocyte % (Auto) 0.0 0-1 % Neutrophils (%) (Auto) 2.8 L 40.0-77.0 % Lymphocytes (%) (Auto) 60.6 H 21.0-51.0 % Monocytes (%) (Auto) 35.6 H 3.0-13.0 % Eosinophils (%) (Auto) 0.0 0.0-8.0 % Basophils (%) (Auto) 1.0 0.0-5.0 % Neutrophils # (Auto) 0.0 L 1.8-7.7 K/uL Lymphocytes # (Auto) 0.6 L 1.0-4.8 K/uL Monocytes # (Auto) 0.4 0.1-1.0 K/uL Eosinophils # (Auto) 0.00 0.00-0.70 K/uL Basophils # (Auto) 0.01 0.00-0.20 K/uL Absolute Immature Granulocyte (auto 0.00 0-1 K/uL Nucleated Red Blood Cells 0.0 0.0-0.19 % White Cell Morphology Comment See comments Chemistry Labs: Test 07/30/24 04:40 Range/Units Sodium Level 125 L 136-145 mmol/L Potassium Level 3.4 L 3.5-5.1 mmol/L Chloride Level 93 L 101-111 mmol/L Carbon Dioxide Level 26 21-32 mmol/L Blood Urea Nitrogen 5 L 7-18 mg/dL Creatinine 0.6 0.5-1.3 mg/dL Glomerular Filtration Rate Calc 102 >90 mL/min Random Glucose 97 70-105 mg/dL Total Calcium 7.6 L 8.5-10.1 mg/dL Total Bilirubin 0.6 0.2-1.0 mg/dL Aspartate Amino Transf (AST/SGOT) 22 10-37 U/L Alanine Aminotransferase (ALT/SGPT) 25 12-78 U/L Alkaline Phosphatase 66 50-136 U/L C-Reactive Protein, Quantitative 29.50 H 0.5-3.0 mg/L Total Protein 7.3 6.0-8.3 g/dL Albumin 2.5 L 3.5-5.0 g/dL Thyroid Stimulating Hormone (TSH) 11.53 H 0.36-3.74 uIU/mL DIAGNOSTICS / RADIOLOGY RESULTS: [ ] PLAN Follow oncology recommendations Broad spectrum antibiotics follow ID recs panculture Negative for thyphoid, Influenza A and B, covid and strep CT of the chest CBC CMP TSH NEURO: Minimize central acting medications as possible. Maintain fall precautions, adequate lighting during the day PULMONARY: Supplemental 02 as needed. Maintain aspiration precautions at all times CARDIOVASCULAR: Follow hemodynamics. Vital signs per facility protocol GI & NUTRITION: Continue with nutritional support. Continue stool softeners and laxatives as needed. KIDNEYS & ELECTROLYTES: Strict monitoring of intake, output and overall fluid balance. Avoid nephrotoxic medications to the extent possible. Medications to be dosed according to renal function. Monitor electrolytes and replace as needed ENDOCRINE: Maintain blood glucose between 100-180 at all times. Hypoglycemia protocol in place INFECTIOUS DISEASE: Trend temperature, WBC and procalcitonin level Follow cultures, deescalate antibiotics as soon as possible. Panculture if new onset fever ONCOLOGY/HEMATOLOGY/COAGULATION: Monitor for s/s of bleeding Monitor hemoglobin, coagulation studies as needed SKIN: Pressure ulcer prevention per facility protocol Specialty mattress ORTHO/REHAB: Continue PT/OT Prophylaxis: Continue GI and DVT prophylaxis Code Status: Full Resuscitation Disposition: TBD Other: Total patient care time exceeds 35 minutes excluding all procedures. JONATHAN MA Jul 30, 2024 13:19 EHSAN SCHROEDER MD Aug 02, 2024 14:46
--- NOTE | 2024-07-30 17:02 | CONS ---
CONSULT NOTE: Patient is a 73-year-old male coming in to be evaluated for fever. Per family member and patient he has been having fever for a couple of days. He was evaluated at the urgent care and was told had an upper respiratory infection. Patient does has a history of cancer in his currently on chemotherapy. Patient was to follow up at the emergency room per MD Pugh for evaluation of a pneumonia. Allergies: Coded Allergies: No Known Allergies (Unverified Allergy, Unknown, 03/04/22) Home Meds Active Scripts Ibuprofen (Motrin/Advil) 800 Mg Tab, 800 MG PO TIDP PRN for PAIN, #30 TAB Prov:GEOVANY OLIVAS MD 03/04/22 Lidocaine (Lidoderm Patch 5%) 1 Patch Patch, 1 PATCH TP DAILY PRN for PAIN, #10 ADH.PATCH Prov:GEOVANY OLIVAS MD 03/04/22 Cyclobenzaprine HCl (Flexeril) 10 Mg Tab, 10 MG PO TID, #30 TAB Prov:GEOVANY OLIVAS MD 03/04/22 Reported Medications Hydrochlorothiazide (Hydrochlorothiazide) 25 Mg Tablet, 25 MG PO DAILY, TAB 03/04/22 Hydroxyzine HCl (Hydroxyzine HCl) 25 Mg Tablet, 25 MG PO DAILY, TAB 03/04/22 Past History Past Medical History Past Medical History: Cancer, Hepatitis Medical History Other: ESOPHAGEAL CA, METS Past Surgical History: Other Surgical History Other: HERNIA Family History Family History: HTN Social History Social History: ETOH, Lives with family Review of Systems ROS Dictation CONSTITUTIONAL: chills, fever, weakness, no diaphoresis, no malaise. ALLERGIES: Coded Allergies: No Known Allergies (Unverified Allergy, Unknown, 03/04/22) HOME MEDS: Active Scripts Ibuprofen (Motrin/Advil) 800 Mg Tab, 800 MG PO TIDP PRN for PAIN, #30 TAB Prov:GEOVANY OLIVAS MD 03/04/22 Lidocaine (Lidoderm Patch 5%) 1 Patch Patch, 1 PATCH TP DAILY PRN for PAIN, #10 ADH.PATCH Prov:GEOVANY OLIVAS MD 03/04/22 Cyclobenzaprine HCl (Flexeril) 10 Mg Tab, 10 MG PO TID, #30 TAB Prov:GEOVANY OLIVAS MD 03/04/22 Reported Medications Hydrochlorothiazide (Hydrochlorothiazide) 25 Mg Tablet, 25 MG PO DAILY, TAB 03/04/22 Hydroxyzine HCl (Hydroxyzine HCl) 25 Mg Tablet, 25 MG PO DAILY, TAB 03/04/22 PHYSICAL EXAM HEAD/FACE: No signs of trauma. EENT: No eye pain, no blurred vision, no tearing, no double vision, no ear pain, no ear discharge, no nose pain, no nasal congestion, no throat pain, no throat swelling, no mouth pain. RESPIRATORY: cough, no orthopnea, no SOB, no stridor, no wheezing. CARDIOVASCULAR: No chest pain, no edema, no palpitations, no syncope. GASTROINTESTINAL/ABDOMINAL: No abdominal pain, no constipation, no diarrhea, no nausea, no vomiting. GENITOURINARY: No abnormal discharge, no dysuria, no frequent urination, no hematuria. No complaints of pain in the genitals. MUSCULOSKELETAL: No back pain, no gout, no joint pain, no joint swelling, no muscle pain, no muscle stiffness, no neck pain. INTEGUMENTARY: No change in color, no change in hair/nails, no dryness, no l esion, no lumps, no rash. NEUROLOGICAL/PSYCH: No anxiety, not depressed, no emotional problem, no headache, no numbness, no pre-existing deficit, no history of seizures, no tremors, no weakness. HEMATOLOGIC/LYMPHATIC: Not anemic, no history of blood clots, no apparent bleeding, no bruising, glands not swollen. Assessment 1. History of esophageal cancer with the patient receiving chemotherapy treatment as a palliative with Dr. Tran in [facility]. 2. Chemo induced neutropenia 3. Sepsis 4. Failure to thrive 5. 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 Patient to be under neutropenic precaution 2. Continue antibiotic treatment 3. Granix 300 mcg subcu daily 4. CBC daily. 5. Will hold any chemotherapy treatment for this patient at this time 6. I did talk to the patient with family. They know that he have metastatic disease. Prognosis is poor with the patient is not curative.LAB RESULTS 07/30/24 04:40: White Blood Count 1.0*L, Red Blood Count 3.31L, Hemoglobin 10.0L, Hematocrit 29.1L, Mean Corpuscular Volume 87.9, Mean Corpuscular Hemoglobin 30.2, Mean Corpuscular Hemoglobin Concent 34.4, Red Cell Distribution Width 13.9, Platelet Count 105L, Mean Platelet Volume 9.9, Immature Granulocyte % (Auto) 0.0, Neutrophils (%) (Auto) 2.8L, Lymphocytes (%) (Auto) 60.6H, Monocytes (%) (Auto) 35.6H, Eosinophils (%) (Auto) 0.0, Basophils (%) (Auto) 1.0, Neutrophils # (Auto) 0.0L, Lymphocytes # (Auto) 0.6L, Monocytes # (Auto) 0.4, Eosinophils # (Auto) 0.00, Basophils # (Auto) 0.01, Absolute Immature Granulocyte (auto 0.00, Nucleated Red Blood Cells 0.0, Sodium Level 125L, Potassium Level 3.4L, Chloride Level 93L, Carbon Dioxide Level 26, Blood Urea Nitrogen 5L, Creatinine 0.6, Glomerular Filtration Rate Calc 102, Random Glucose 97, Total Calcium 7.6L, Total Bilirubin 0.6, Aspartate Amino Transf (AST/SGOT) 22, Alanine Aminotransferase (ALT/SGPT) 25, Alkaline Phosphatase 66, C-Reactive Protein, Quantitative 29.50H, Total Protein 7.3, Albumin 2.5L, Thyroid Stimulating Hormone (TSH) 11.53H 07/29/24 06:59: White Cell Morphology Comment See comments Laboratory Tests Test 07/30/24 04:40 White Blood Count 1.0 K/uL (4.8-10.8) *L Red Blood Count 3.31 MIL/uL (4.50-6.20) L Hemoglobin 10.0 g/dL (14.0-18.0) L Hematocrit 29.1 % (42-54) L Mean Corpuscular Volume 87.9 fL (79-99) Mean Corpuscular Hemoglobin 30.2 pg (27.0-33.0) Mean Corpuscular Hemoglobin Concent 34.4 g/dL (32.0-36.0) Red Cell Distribution Width 13.9 % (11.0-15.5) Platelet Count 105 K/uL (130-400) L Mean Platelet Volume 9.9 fL (7.5-10.5) Immature Granulocyte % (Auto) 0.0 % (0-1) Neutrophils (%) (Auto) 2.8 % (40.0-77.0) L Lymphocytes (%) (Auto) 60.6 % (21.0-51.0) H Monocytes (%) (Auto) 35.6 % (3.0-13.0) H Eosinophils (%) (Auto) 0.0 % (0.0-8.0) Basophils (%) (Auto) 1.0 % (0.0-5.0) Neutrophils # (Auto) 0.0 K/uL (1.8-7.7) L Lymphocytes # (Auto) 0.6 K/uL (1.0-4.8) L Monocytes # (Auto) 0.4 K/uL (0.1-1.0) Eosinophils # (Auto) 0.00 K/uL (0.00-0.70) Basophils # (Auto) 0.01 K/uL (0.00-0.20) Absolute Immature Granulocyte (auto 0.00 K/uL (0-1) Nucleated Red Blood Cells 0.0 % (0.0-0.19) Sodium Level 125 mmol/L (136-145) L Potassium Level 3.4 mmol/L (3.5-5.1) L Chloride Level 93 mmol/L (101-111) L Carbon Dioxide Level 26 mmol/L (21-32) Blood Urea Nitrogen 5 mg/dL (7-18) L Creatinine 0.6 mg/dL (0.5-1.3) Glomerular Filtration Rate Calc 102 mL/min (>90) Random Glucose 97 mg/dL (70-105) Total Calcium 7.6 mg/dL (8.5-10.1) L Total Bilirubin 0.6 mg/dL (0.2-1.0) Aspartate Amino Transf (AST/SGOT) 22 U/L (10-37) Alanine Aminotransferase (ALT/SGPT) 25 U/L (12-78) Alkaline Phosphatase 66 U/L (50-136) C-Reactive Protein, Quantitative 29.50 mg/L (0.5-3.0) H Total Protein 7.3 g/dL (6.0-8.3) Albumin 2.5 g/dL (3.5-5.0) L Thyroid Stimulating Hormone (TSH) 11.53 uIU/mL (0.36-3.74) H KILEY SALDAÑA MD Jul 30, 2024 17:02
[2024-07-30] MEDS ORDERED: PHARMACY COMMUNICATION MISC SCH (18:30)
[2024-07-30] MEDS ORDERED: PoTASSium chloRIDE 20MEQ/100ML 100 ML IV PRN (18:30)
[2024-07-30] MEDS ORDERED: PoTASSium chl 10% ELIXIR 20MEQ 20 MEQ/15 ML UDCUP PO PRN (18:30)
[2024-07-30] MEDS: hydroMORPHone 0.5 MG SYG (0.5MG/0.5ML) IVP PRN (18:48)
[2024-07-30] MEDS ORDERED: COMPOUND PO MISCELLANEOUS 1 EACH MISC MISC PRN (19:00)
[2024-07-30] MEDS: PoTASSium chloRIDE 20MEQ ER 20 MEQ ERTAB PO PRN (20:38)
[2024-07-30] MEDS: CLOTRIMAZOLE 10 MG TROCHE MM SCH (20:38)
--- NOTE | 2024-07-30 20:49 | PN ---
PROGRESS NOTE PROGRESS NOTE DATE OF PROGRESS NOTE: 07/30/24 SUBJECTIVE: Patient voices no complaints VITAL SIGNS Vital Signs Date Time Temp Pulse Resp B/P (MAP) Pulse Ox O2 Delivery O2 Flow Rate FiO2 07/30/24 19:50 98.8 99 17 114/71 99 Room Air 07/30/24 19:16 21 07/30/24 08:00 0 PHYSICAL EXAM: HEAD/FACE: No signs of trauma. EENT: No eye pain, no blurred vision, no tearing, no double vision, no ear pain, no ear discharge, no nose pain, no nasal congestion, no throat pain, no throat swelling, no mouth pain. RESPIRATORY: cough, no orthopnea, no SOB, no stridor, no wheezing. CARDIOVASCULAR: No chest pain, no edema, no palpitations, no syncope. GASTROINTESTINAL/ABDOMINAL: No abdominal pain, no constipation, no diarrhea, no nausea, no vomiting. GENITOURINARY: No abnormal discharge, no dysuria, no frequent urination, no hematuria. No complaints of pain in the genitals. MUSCULOSKELETAL: No back pain, no gout, no joint pain, no joint swelling, no muscle pain, no muscle stiffness, no neck pain. INTEGUMENTARY: No change in color, no change in hair/nails, no dryness, no lesion, no lumps, no rash. NEUROLOGICAL/PSYCH: No anxiety, not depressed, no emotional problem, no headache, no numbness, no pre-existing deficit, no history of seizures, no tremors, no weakness. HEMATOLOGIC/LYMPHATIC: Not anemic, no history of blood clots, no apparent bleeding, no bruising, glands not swollen. All Systems Negative, Except as Noted. LABORATORY: Laboratory Result(s) Test 07/30/24 04:40 White Blood Count 1.0 K/uL (4.8-10.8) Red Blood Count 3.31 MIL/uL (4.50-6.20) Hemoglobin 10.0 g/dL (14.0-18.0) Hematocrit 29.1 % (42-54) Mean Corpuscular Volume 87.9 fL (79-99) Mean Corpuscular Hemoglobin 30.2 pg (27.0-33.0) Mean Corpuscular Hemoglobin Concent 34.4 g/dL (32.0-36.0) Red Cell Distribution Width 13.9 % (11.0-15.5) Platelet Count 105 K/uL (130-400) Mean Platelet Volume 9.9 fL (7.5-10.5) Immature Granulocyte % (Auto) 0.0 % (0-1) Neutrophils (%) (Auto) 2.8 % (40.0-77.0) Lymphocytes (%) (Auto) 60.6 % (21.0-51.0) Monocytes (%) (Auto) 35.6 % (3.0-13.0) Eosinophils (%) (Auto) 0.0 % (0.0-8.0) Basophils (%) (Auto) 1.0 % (0.0-5.0) Neutrophils # (Auto) 0.0 K/uL (1.8-7.7) Lymphocytes # (Auto) 0.6 K/uL (1.0-4.8) Monocytes # (Auto) 0.4 K/uL (0.1-1.0) Eosinophils # (Auto) 0.00 K/uL (0.00-0.70) Basophils # (Auto) 0.01 K/uL (0.00-0.20) Absolute Immature Granulocyte (auto 0.00 K/uL (0-1) Nucleated Red Blood Cells 0.0 % (0.0-0.19) Sodium Level 125 mmol/L (136-145) Potassium Level 3.4 mmol/L (3.5-5.1) Chloride Level 93 mmol/L (101-111) Carbon Dioxide Level 26 mmol/L (21-32) Blood Urea Nitrogen 5 mg/dL (7-18) Creatinine 0.6 mg/dL (0.5-1.3) Glomerular Filtration Rate Calc 102 mL/min (>90) Random Glucose 97 mg/dL (70-105) Total Calcium 7.6 mg/dL (8.5-10.1) Total Bilirubin 0.6 mg/dL (0.2-1.0) Aspartate Amino Transf (AST/SGOT) 22 U/L (10-37) Alanine Aminotransferase (ALT/SGPT) 25 U/L (12-78) Alkaline Phosphatase 66 U/L (50-136) C-Reactive Protein, Quantitative 29.50 mg/L (0.5-3.0) Total Protein 7.3 g/dL (6.0-8.3) Albumin 2.5 g/dL (3.5-5.0) Thyroid Stimulating Hormone (TSH) 11.53 uIU/mL (0.36-3.74) Microbiology Results Date/Time Source Procedure Growth Status 07/30/24 06:55 Tracheal Aspirate Aspirate Gram Stain - Final Resulted 07/30/24 06:55 Tracheal Aspirate Aspirate Respiratory Culture Pending Resulted INPATIENT MEDS: Current Medications Medications Dose Ordered Sig/Miriam Start Time Stop Time Status Last Admin Albuterol 1 udvial [id number] 07/28/24 18:00 08/27/24 17:59 07/30/24 10:59 Albuterol 1 udvial Q4HPRN PRN 07/28/24 17:00 08/27/24 16:59 Azithromycin 250 ml @ 250 mls/hr Q24H 07/28/24 17:00 08/02/24 16:59 07/30/24 17:32 Enoxaparin Sodium 40 mg DAILY 07/29/24 09:00 08/28/24 08:59 07/29/24 09:54 Hydromorphone HCl 0.5 mg Q3H3 PRN 07/28/24 22:00 08/02/24 21:59 07/30/24 18:48 Acetaminophen 650 mg Q6H PRN 07/28/24 22:00 08/27/24 21:59 07/29/24 16:27 Acetaminophen 650 mg Q6H PRN 07/28/24 22:00 08/27/24 21:59 Ondansetron HCl 4 mg Q6H PRN 07/28/24 22:00 08/27/24 21:59 Cefepime HCl 2 gm Q12H 07/29/24 14:00 08/08/24 13:59 07/30/24 14:11 Fluconazole/ Sodium Chloride 400 mg Q24H 07/29/24 14:00 08/08/24 13:59 07/30/24 14:11 Clotrimazole 10 mg Q6H 07/30/24 21:00 08/29/24 20:59 07/30/24 20:38 Potassium Chloride 100 ml @ 100 mls/hr AD PRN 07/30/24 18:30 08/29/24 18:29 Potassium Chloride 20 meq AD PRN 07/30/24 18:30 3/21/25 18:29 Potassium Chloride 20 meq AD PRN 07/30/24 18:30 08/29/24 18:29 07/30/24 20:38 Al Hydroxide/Mg Hydroxide/ Lidocaine HCl/ Diphenhydramine HCl TAKE (5-10)ML SWISH ... Q6H PRN 07/30/24 19:00 08/29/24 18:59 PROBLEM LIST: (1) Pneumonia ICD Code: J18.9 - Pneumonia, unspecified organism (2) Sepsis ICD Code: A41.9 - Sepsis, unspecified organism (3) Immunodeficiency ICD Code: D84.9 - Immunodeficiency, unspecified (4) Maintenance chemotherapy ICD Code: Z51.11 - Encounter for antineoplastic chemotherapy PLAN: IV antibiotics hydrate consult oncologyAnd pulmonology Sepsis Neutropenic fever Severe neutropenia, POA Esophageal CA with Mets Immunodeficiency Maintenance chemotherapy suspected community acquired pneumonia POA History of hepatitis Hypertension Chronic Generalized rash to face and scalp worsening, POA LATRICIA PETERSON MD Jul 30, 2024 20:49
[2024-07-31] VITALS (13 sets, daily range): BP systolic 111–138; BP diastolic 62–69; PULSE 82–103; RESP 16–20; TEMP 97.9–98.9; O2SAT 93–98
--- NOTE | 2024-07-31 03:42 | CONS ---
INFECTIOUS DISEASE CONSULTATION DATE OF SERVICE: 07/30/2024 REQUESTING PHYSICIAN: Etta Powell NP REASON FOR CONSULTATION: Sepsis and neutropenia. HISTORY OF PRESENT ILLNESS: A 73-year-old male with history of esophageal cancer, hypertension, obesity, presented to the hospital with fever, cough. No sore throat. The patient's T-max was 101. The patient has esophageal cancer and last chemotherapy was 1 week ago. The patient received chemotherapy at [facility]. The patient was found with pancytopenia. The patient has some cough. Chest x-ray shows infiltrates. PAST MEDICAL HISTORY: * Esophageal cancer. * Hypertension. * Obesity. PAST SURGICAL HISTORY: * . * EGD. * PEG placement. ALLERGIES: No known drug allergy. CURRENT MEDICATIONS: Include: * Cefepime. * . * . * DuoNeb. * Lisinopril. SOCIAL HISTORY: Lives with . No alcohol, tobacco or illicit drug use. FAMILY HISTORY: Noncontributory. REVIEW OF SYSTEMS: Greater than 10 systems were reviewed, negative except as documented above. PHYSICAL EXAMINATION: GENERAL: Elderly male, awake. VITAL SIGNS: Temperature 98.1, pulse 96, respirations 16, BP 137/64. EYES: No icterus. Pupils equal and reactive. HENT: There is extensive oral mucositis. No oral thrush seen. NECK: Supple, no JVD or thyromegaly. LUNGS: Good air entry. No rales, no rhonchi. CARDIOVASCULAR: S1, S2 regular, tachycardic. No murmur heard. ABDOMEN: Obese, soft. Bowel sound is present. CENTRAL NERVOUS SYSTEM: Awake, alert, oriented x 3. No focal deficits. SKIN: No rashes, no itchiness. LYMPHATIC: No peripheral lymphadenopathy. BACK: No deformity, no pressure ulcer. . MUSCULOSKELETAL: No joint swelling, erythema or tenderness. LABORATORY DATA: Sodium 125, potassium 3.4, BUN 5, creatinine 0.6. WBC at 1.0, hemoglobin 10.0, platelet 105. Urinalysis: Wbc 5. Blood culture, no growth for 2 days. RADIOLOGY: CT chest shows infiltrates. ASSESSMENT: A 73-year-old male presenting with fever. CURRENT PROBLEMS: Include: * Sepsis. * Healthcare-associated pneumonia. * Hyponatremia. * Chemotherapy-induced neutropenia. * Underlying immunosuppression. * mucositis. PLAN: * Continue cefepime. * Continue fluconazole. * . * Start the patient on Mycelex troches. * Continue . * Continue Granix. * Monitor electrolytes. * The patient will follow up closely. Thank you for allowing me to participate in the care of this patient. TID: [id number] RECEIPT: [id number]
[2024-07-31 04:10] LABS: BASOPHILS # (AUTO) 0.01 K/uL (0.00-0.20); BASOPHILS % (AUTO) 1.2 % (0.0-5.0); HEMATOCRIT 27.6 % (42-54); LYMPHOCYTES # (AUTO) 0.4 K/uL (1.0-4.8); LYMPHOCYTES % (AUTO) 44.6 % (21.0-51.0); MEAN CORPUSCULAR HGB CONC 34.1 g/dL (32.0-36.0); MEAN CORPUSCULAR VOLUME 88.2 fL (79-99); MONOCYTES # (AUTO) 0.4 K/uL (0.1-1.0); MONOCYTES % (AUTO) 50.6 % (3.0-13.0); NEUTROPHILS % (AUTO) 3.6 % (40.0-77.0); PLATELET COUNT (AUTO) 115 K/uL (130-400); RED BLOOD CELL COUNT(AUTO) 3.13 MIL/uL (4.50-6.20)
--- NOTE | 2024-07-31 04:14 | NUR ---
nursing pm note patient alert and oriented times 4. at bedside. plan of care discussed with them and they verbalized understanding. patient has no pain tonight. he has slept about 6 hours tonight. call light within reach, bed alarm on, 2 side rails up. will continue to monitor patient.
[2024-07-31 04:16] LABS: WHITE BLOOD COUNT (AUTO) 0.8 K/uL (4.8-10.8)
[2024-07-31 04:25] LABS: ALBUMIN 2.3 g/dL (3.5-5.0); BILIRUBIN,TOTAL 0.6 mg/dL (0.2-1.0); CREATININE 0.6 mg/dL (0.5-1.3); TOTAL PROTEIN, SERUM 7.1 g/dL (6.0-8.3)
--- NOTE | 2024-07-31 10:01 | PN ---
INFECTIOUS DISEASE PROGRESS NOTE Date of Service: Jul 31, 2024 SUBJECTIVE: This is a 73-year-old male patient who presented to the hospital for evaluation of fever and sore throat. On admission to the hospital patient had a fever of 101.1. Patient's WBC was 0.4, patient reported his last chemotherapy was 2 weeks ago. On examination patient has oral mucositis and has been started on Mycelex and magic mouthwash. Today patient's WBC is 0.8. Oncologist has evaluated patient and will be started on Granix. Platelet count has improved to 115 today. We will follow up on the sputum culture results. No fever reported this morning, temperature is 98.8. Patient is currently on cefepime, fluconazole and azithromycin. No reports of nausea or vomiting. We will continue to monitor patient's care. PHYSICAL EXAM EYES: Anicteric. Pupils equal and reactive. HENT: No oral thrush seen, moist, Oral mucositis. NECK: Supple, no JVD or thyromegaly. LUNGS: Good air entry. No rales, no rhonchi. Crackles. CARDIOVASCULAR: S1, S2 regular. No murmur heard. ABDOMEN: Soft, non tender, bowel sounds present, no organomegaly CENTRAL NERVOUS SYSTEM: Awake, alert, oriented x 3. SKIN: No rashes, no swelling. LYMPHATICS: No peripheral lymphadenopathy MUSCULOSKELETAL: No joint swelling, erythema or tenderness. EXTREMITIES: No cyanosis or clubbing. BACK: No deformity, no pressure ulcer. GENITOURINARY: No dysuria or hematuria. Vital Sign (Last 12 Hours) 07/30/24 07/30/24 07/31/24 07/31/24 23:28 23:39 03:11 06:43 Temp 98.8 98.1 Pulse 85 91 93 82 Resp 19 17 16 19 B/P (MAP) 136/73 136/65 Pulse Ox 98 99 O2 Delivery Room Air Room Air 07/31/24 07/31/24 06:43 07:48 Temp 98.8 Pulse 82 91 Resp 19 16 B/P (MAP) 138/66 Pulse Ox 99 O2 Delivery N/A Room Air Room Air O2 Flow Rate 0.0 FiO2 21 Intake & Output (last 24hrs) 07/30/24 07/30/24 07/31/24 15:00 23:00 07:00 Intake Total 1250 ml 300.0 ml Output Total 200 ml 500 ml Balance 1050 ml -200.0 ml LABS: Laboratory: Test 07/31/24 03:44 07/30/24 04:40 Range/Units White Blood Count 0.8 *L 4.8-10.8 K/uL Red Blood Count 3.13 L 4.50-6.20 MIL/uL Hemoglobin 9.4 L 14.0-18.0 g/dL Hematocrit 27.6 L 42-54 % Mean Corpuscular Volume 88.2 79-99 fL Mean Corpuscular Hemoglobin 30.0 27.0-33.0 pg Mean Corpuscular Hemoglobin Concent 34.1 32.0-36.0 g/dL Red Cell Distribution Width 14.0 11.0-15.5 % Platelet Count 115 L 130-400 K/uL Mean Platelet Volume 10.0 7.5-10.5 fL Immature Granulocyte % (Auto) 0.0 0-1 % Neutrophils (%) (Auto) 3.6 L 40.0-77.0 % Lymphocytes (%) (Auto) 44.6 21.0-51.0 % Monocytes (%) (Auto) 50.6 H 3.0-13.0 % Eosinophils (%) (Auto) 0.0 0.0-8.0 % Basophils (%) (Auto) 1.2 0.0-5.0 % Neutrophils # (Auto) 0.0 L 1.8-7.7 K/uL Lymphocytes # (Auto) 0.4 L 1.0-4.8 K/uL Monocytes # (Auto) 0.4 0.1-1.0 K/uL Eosinophils # (Auto) 0.00 0.00-0.70 K/uL Basophils # (Auto) 0.01 0.00-0.20 K/uL Absolute Immature Granulocyte (auto 0.00 0-1 K/uL Nucleated Red Blood Cells 0.0 0.0-0.19 % Sodium Level 127 L 136-145 mmol/L Potassium Level 4.0 3.5-5.1 mmol/L Chloride Level 96 L 101-111 mmol/L Carbon Dioxide Level 24 21-32 mmol/L Blood Urea Nitrogen 5 L 7-18 mg/dL Creatinine 0.6 0.5-1.3 mg/dL Glomerular Filtration Rate Calc 102 >90 mL/min Random Glucose 94 70-105 mg/dL Total Calcium 7.9 L 8.5-10.1 mg/dL Total Bilirubin 0.6 0.2-1.0 mg/dL Aspartate Amino Transf (AST/SGOT) 20 10-37 U/L Alanine Aminotransferase (ALT/SGPT) 23 12-78 U/L Alkaline Phosphatase 66 50-136 U/L Total Protein 7.1 6.0-8.3 g/dL Albumin 2.3 L 3.5-5.0 g/dL C-Reactive Protein, Quantitative 29.50 H 0.5-3.0 mg/L Thyroid Stimulating Hormone (TSH) 11.53 H 0.36-3.74 uIU/mL DIAGNOSTICS / RADIOLOGY: PATIENT: CORY PIERRE MR#: [id number] : 1950 SEX: M AGE: 73 LOCATION: [facility] ORDER [id number] STATUS: [facility] REPORT#: [id number] SERVICE 1239 REASON: fever ORDERING PHYSICIAN: KURTIS BAILEY MD PROCEDURE: CXR1VW - CHEST 1VW CHEST 1VW REASON: fever COMPARISON: None. FINDINGS: There is 2 cm well-circumscribed mass midportion of the right lung. There is some faint nodularity in the left lung which could be some smaller nodules. There are no acute appearing infiltrates. Heart size is normal. There is a chest port in place. Be some and bony thorax appear unremarkable. IMPRESSION: 1. 2 cm nodule right midlung, there may be some smaller nodules present in the left lung. 2. No evidence of an acute infiltrate. DICTATED BY: LISA CHOWDHURY MD DATE: 07/28/24 5150 ASSESSMENT: Healthcare associated pneumonia. Sepsis. Chemotherapy induced neutropenia. Esophageal cancer. Underlying immunosuppression. Oral Mucositis. Hyponatremia. PLAN: Continue fluconazole. Continue cefepime. Continue azithromycin. Continue Mycelex. Continue magic mouthwash. We will follow up on the culture results. Oncologist has evaluated patient and will be started on Granix today. This case was reviewed and discussed with my supervising physician and the above assessment and plan was formulated and agreed upon. ATTESTATION BY PHYSICIAN I have seen and examined the patient. I reviewed the documentation, medical decision making, and treatment plan as noted by the mid-level provider above. I agree with the findings and plan of care. ANA M MELLO MD, [facility] Jul 31, 2024 10:01
[2024-07-31] MEDS: TBO-FILGRASTIM 300 MCG/0.5 ML ML SQ SCH (10:25)
[2024-07-31] MEDS: MAG/AL/SIMETH 30 ML+LIDO2% VISC+DIPHEN 75MG 30ML PO PRN (13:32)
--- NOTE | 2024-07-31 14:35 | PN ---
[facility] PROGRESS NOTE Date Patient Seen: Jul 31, 2024 Time of Visit: 14:34 Supervising Physician: Dr. Lilly Schroeder Primary Care Physician: Joe Mora MD Outpatient Specialists: Inpatient Consults: Domingo Silverio MD PROBLEM LIST: Sepsis Neutropenic fever Severe neutropenia, POA Esophageal CA with Mets Immunodeficiency Maintenance chemotherapy suspected community acquired pneumonia POA History of hepatitis Hypertension Chronic Generalized rash to face and scalp worsening, POA INTERVAL HISTORY: Patient was seen at bedside with his present. He remains on neutropenic precautions currently on Diflucan cefepime and azithromycin. Patient was seen by Oncology yesterday, received his 1st dose of Granix 300 today. Patient was on room air, chemo was being held. Tracheal aspirate culture positive for Gram- negative rods and Gram-positive rods at this time. We will continue to follow this patient closely while on the floor. Disposition per primary and Oncology. REVIEW OF SYSTEMS: 12 point ROS reviewed with patient. Pertinent positives mentioned above. Otherwise negative. PHYSICAL EXAM: GENERAL: alert, weak, awake oriented x 3 HEENT: EOMI, Sclera non icteric, moist mucosa , generalized rash to face and scalp NECK: Supple, no JVD, trachea midline LUNGS: diminished breath sounds bilaterally. No wheezes HEART: Regular rate and rhythm. Normal S1 and S2, without murmurs ABD: Abdomen soft, nontender. Bowel sounds present EXT: No clubbing cyanosis or edema NEURO: Alert and oriented to person, follows commands Vital Signs (last 8hr) Date Time Temp Pulse Resp B/P (MAP) Pulse Ox O2 Delivery O2 Flow Rate FiO2 07/31/24 11:53 99.0 93 20 128/69 98 Room Air 07/31/24 11:07 94 19 07/31/24 11:06 94 19 N/A Room Air 21 07/31/24 07:48 98.8 91 16 138/66 99 Room Air 0.0 07/31/24 06:43 82 19 N/A Room Air 07/31/24 06:43 82 19 LABS: Hematology Labs: Test 07/31/24 03:44 Range/Units White Blood Count 0.8 *L 4.8-10.8 K/uL Red Blood Count 3.13 L 4.50-6.20 MIL/uL Hemoglobin 9.4 L 14.0-18.0 g/dL Hematocrit 27.6 L 42-54 % Mean Corpuscular Volume 88.2 79-99 fL Mean Corpuscular Hemoglobin 30.0 27.0-33.0 pg Mean Corpuscular Hemoglobin Concent 34.1 32.0-36.0 g/dL Red Cell Distribution Width 14.0 11.0-15.5 % Platelet Count 115 L 130-400 K/uL Mean Platelet Volume 10.0 7.5-10.5 fL Immature Granulocyte % (Auto) 0.0 0-1 % Neutrophils (%) (Auto) 3.6 L 40.0-77.0 % Lymphocytes (%) (Auto) 44.6 21.0-51.0 % Monocytes (%) (Auto) 50.6 H 3.0-13.0 % Eosinophils (%) (Auto) 0.0 0.0-8.0 % Basophils (%) (Auto) 1.2 0.0-5.0 % Neutrophils # (Auto) 0.0 L 1.8-7.7 K/uL Lymphocytes # (Auto) 0.4 L 1.0-4.8 K/uL Monocytes # (Auto) 0.4 0.1-1.0 K/uL Eosinophils # (Auto) 0.00 0.00-0.70 K/uL Basophils # (Auto) 0.01 0.00-0.20 K/uL Absolute Immature Granulocyte (auto 0.00 0-1 K/uL Nucleated Red Blood Cells 0.0 0.0-0.19 % Chemistry Labs: Test 07/31/24 03:44 07/30/24 04:40 Range/Units Sodium Level 127 L 136-145 mmol/L Potassium Level 4.0 3.5-5.1 mmol/L Chloride Level 96 L 101-111 mmol/L Carbon Dioxide Level 24 21-32 mmol/L Blood Urea Nitrogen 5 L 7-18 mg/dL Creatinine 0.6 0.5-1.3 mg/dL Glomerular Filtration Rate Calc 102 >90 mL/min Random Glucose 94 70-105 mg/dL Total Calcium 7.9 L 8.5-10.1 mg/dL Total Bilirubin 0.6 0.2-1.0 mg/dL Aspartate Amino Transf (AST/SGOT) 20 10-37 U/L Alanine Aminotransferase (ALT/SGPT) 23 12-78 U/L Alkaline Phosphatase 66 50-136 U/L Total Protein 7.1 6.0-8.3 g/dL Albumin 2.3 L 3.5-5.0 g/dL C-Reactive Protein, Quantitative 29.50 H 0.5-3.0 mg/L Thyroid Stimulating Hormone (TSH) 11.53 H 0.36-3.74 uIU/mL DIAGNOSTICS / RADIOLOGY RESULTS: [ ] PLAN Follow oncology recommendations Broad spectrum antibiotics follow ID recs panculture Negative for thyphoid, Influenza A and B, covid and strep CT of the chest CBC CMP TSH NEURO: Minimize central acting medications as possible. Maintain fall precautions, adequate lighting during the day PULMONARY: Supplemental 02 as needed. Maintain aspiration precautions at all times CARDIOVASCULAR: Follow hemodynamics. Vital signs per facility protocol GI & NUTRITION: Continue with nutritional support. Continue stool softeners and laxatives as needed. KIDNEYS & ELECTROLYTES: Strict monitoring of intake, output and overall fluid balance. Avoid nephrotoxic medications to the extent possible. Medications to be dosed according to renal function. Monitor electrolytes and replace as needed ENDOCRINE: Maintain blood glucose between 100-180 at all times. Hypoglycemia protocol in place INFECTIOUS DISEASE: Trend temperature, WBC and procalcitonin level Follow cultures, deescalate antibiotics as soon as possible. Panculture if new onset fever ONCOLOGY/HEMATOLOGY/COAGULATION: Monitor for s/s of bleeding Monitor hemoglobin, coagulation studies as needed SKIN: Pressure ulcer prevention per facility protocol Specialty mattress ORTHO/REHAB: Continue PT/OT Prophylaxis: Continue GI and DVT prophylaxis Code Status: Full Resuscitation Disposition: TBD Other: Total patient care time exceeds 35 minutes excluding all procedures. JONATHAN MA Jul 31, 2024 14:34
--- NOTE | 2024-07-31 15:45 | NUR ---
SPEECH TRIGGER COMPLETED. Pt IS A 73 Y.O. MALE ADMITTED SECONDARY TO PNEUMONIA. Pt HAS A PAST MEDICAL HISTORY SIGNIFICANT FOR CANCER AND HEPATITIS. PATIENT PRESENTED WITH NO ACUTE APPEARING PULMONARY INFILTRATES ON MOST RECENT CHEST X-RAY (07/28/2024). Pt CURRENTLY ON REGULAR DIET (REGULAR TEXTURE AND THIN LIQUIDS). PER NURSE DOMINIQUE, Pt TOLERATING DIET WITH NO OVERT S/S OF ASPIRATION. PLEASE REQUEST SPEECH THERAPY SERVICES FOR SKILLED BEDSIDE SWALLOW EVALUATION IF Pt PRESENTS WITH +S/S OF ASPIRATION SUCH COUGH RESPONSE, THROAT CLEAR, OR WET VOCAL QUALITY DURING ORAL INTAKE. ALL QUESTIONS ANSWERED AT THIS TIME. Addendum: 07/31/[address] [facility]ICEL SEBASTIAN Amended: Links added.
--- NOTE | 2024-07-31 16:24 | PN ---
PROGRESS NOTE PROGRESS NOTE DATE OF PROGRESS NOTE: 07/31/24 SUBJECTIVE: no new complaints VITAL SIGNS Vital Signs Date Time Temp Pulse Resp B/P (MAP) Pulse Ox O2 Delivery O2 Flow Rate FiO2 07/31/24 11:53 99.0 93 20 128/69 98 Room Air 07/31/24 11:06 21 07/31/24 07:48 0.0 PHYSICAL EXAM: HEAD/FACE: No signs of trauma. EENT: No eye pain, no blurred vision, no tearing, no double vision, no ear pain, no ear discharge, no nose pain, no nasal congestion, no throat pain, no throat swelling, no mouth pain. RESPIRATORY: cough, no orthopnea, no SOB, no stridor, no wheezing. CARDIOVASCULAR: No chest pain, no edema, no palpitations, no syncope. GASTROINTESTINAL/ABDOMINAL: No abdominal pain, no constipation, no diarrhea, no nausea, no vomiting. GENITOURINARY: No abnormal discharge, no dysuria, no frequent urination, no hematuria. No complaints of pain in the genitals. MUSCULOSKELETAL: No back pain, no gout, no joint pain, no joint swelling, no muscle pain, no muscle stiffness, no neck pain. INTEGUMENTARY: No change in color, no change in hair/nails, no dryness, no lesion, no lumps, no rash. NEUROLOGICAL/PSYCH: No anxiety, not depressed, no emotional problem, no headache, no numbness, no pre-existing deficit, no history of seizures, no tremors, no weakness. HEMATOLOGIC/LYMPHATIC: Not anemic, no history of blood clots, no apparent bleeding, no bruising, glands not swollen. All Systems Negative, Except as Noted. LABORATORY: Laboratory Result(s) Test 07/31/24 03:44 White Blood Count 0.8 K/uL (4.8-10.8) Red Blood Count 3.13 MIL/uL (4.50-6.20) Hemoglobin 9.4 g/dL (14.0-18.0) Hematocrit 27.6 % (42-54) Mean Corpuscular Volume 88.2 fL (79-99) Mean Corpuscular Hemoglobin 30.0 pg (27.0-33.0) Mean Corpuscular Hemoglobin Concent 34.1 g/dL (32.0-36.0) Red Cell Distribution Width 14.0 % (11.0-15.5) Platelet Count 115 K/uL (130-400) Mean Platelet Volume 10.0 fL (7.5-10.5) Immature Granulocyte % (Auto) 0.0 % (0-1) Neutrophils (%) (Auto) 3.6 % (40.0-77.0) Lymphocytes (%) (Auto) 44.6 % (21.0-51.0) Monocytes (%) (Auto) 50.6 % (3.0-13.0) Eosinophils (%) (Auto) 0.0 % (0.0-8.0) Basophils (%) (Auto) 1.2 % (0.0-5.0) Neutrophils # (Auto) 0.0 K/uL (1.8-7.7) Lymphocytes # (Auto) 0.4 K/uL (1.0-4.8) Monocytes # (Auto) 0.4 K/uL (0.1-1.0) Eosinophils # (Auto) 0.00 K/uL (0.00-0.70) Basophils # (Auto) 0.01 K/uL (0.00-0.20) Absolute Immature Granulocyte (auto 0.00 K/uL (0-1) Nucleated Red Blood Cells 0.0 % (0.0-0.19) Sodium Level 127 mmol/L (136-145) Potassium Level 4.0 mmol/L (3.5-5.1) Chloride Level 96 mmol/L (101-111) Carbon Dioxide Level 24 mmol/L (21-32) Blood Urea Nitrogen 5 mg/dL (7-18) Creatinine 0.6 mg/dL (0.5-1.3) Glomerular Filtration Rate Calc 102 mL/min (>90) Random Glucose 94 mg/dL (70-105) Total Calcium 7.9 mg/dL (8.5-10.1) Total Bilirubin 0.6 mg/dL (0.2-1.0) Aspartate Amino Transf (AST/SGOT) 20 U/L (10-37) Alanine Aminotransferase (ALT/SGPT) 23 U/L (12-78) Alkaline Phosphatase 66 U/L (50-136) Total Protein 7.1 g/dL (6.0-8.3) Albumin 2.3 g/dL (3.5-5.0) INPATIENT MEDS: Current Medications Medications Dose Ordered Sig/Miriam Start Time Stop Time Status Last Admin Albuterol 1 udvial [id number] 07/28/24 18:00 08/27/24 17:59 07/31/24 11:04 Albuterol 1 udvial Q4HPRN PRN 07/28/24 17:00 08/27/24 16:59 Azithromycin 250 ml @ 250 mls/hr Q24H 07/28/24 17:00 08/02/24 16:59 07/30/24 17:32 Enoxaparin Sodium 40 mg DAILY 07/29/24 09:00 08/28/24 08:59 07/29/24 09:54 Hydromorphone HCl 0.5 mg Q3H3 PRN 07/28/24 22:00 08/02/24 21:59 07/30/24 18:48 Acetaminophen 650 mg Q6H PRN 07/28/24 22:00 08/27/24 21:59 07/29/24 16:27 Acetaminophen 650 mg Q6H PRN 07/28/24 22:00 08/27/24 21:59 Ondansetron HCl 4 mg Q6H PRN 07/28/24 22:00 08/27/24 21:59 Cefepime HCl 2 gm Q12H 07/29/24 14:00 08/08/24 13:59 07/31/24 13:31 Fluconazole/ Sodium Chloride 400 mg Q24H 07/29/24 14:00 08/08/24 13:59 07/31/24 13:31 Clotrimazole 10 mg Q6H 07/30/24 21:00 08/29/24 20:59 07/31/24 10:24 Potassium Chloride 100 ml @ 100 mls/hr AD PRN 07/30/24 18:30 08/29/24 18:29 Potassium Chloride 20 meq AD PRN 07/30/24 18:30 08/29/24 18:29 Potassium Chloride 20 meq AD PRN 07/30/24 18:30 08/29/24 18:29 07/30/24 23:10 Al Hydroxide/Mg Hydroxide/ Lidocaine HCl/ Diphenhydramine HCl TAKE (5-10)ML SWISH ... Q6H PRN 07/30/24 19:00 08/29/24 18:59 07/31/24 13:32 PROBLEM LIST: (1) Pneumonia ICD Code: J18.9 - Pneumonia, unspecified organism (2) Sepsis ICD Code: A41.9 - Sepsis, unspecified organism (3) Immunodeficiency ICD Code: D84.9 - Immunodeficiency, unspecified (4) Maintenance chemotherapy ICD Code: Z51.11 - Encounter for antineoplastic chemotherapy PLAN: IV antibiotics hydrate consult oncologyAnd pulmonology Sepsis Neutropenic fever Severe neutropenia, POA Esophageal CA with Mets Immunodeficiency Maintenance chemotherapy suspected community acquired pneumonia POA History of hepatitis Hypertension Chronic Generalized rash to face and scalp worsening, POA LATRICIA PETERSON MD Jul 31, 2024 16:24
--- NOTE | 2024-07-31 17:01 | PN ---
Patient is a 73-year-old male coming in to be evaluated for fever. Per family member and patient he has been having fever for a couple of days. He was evaluated at the urgent care and was told had an upper respiratory infection. Patient does has a history of cancer in his currently on chemotherapy. Patient was to follow up at the emergency room per MD Pugh for evaluation of a pneumonia. Patient was found to have neutropenic fever. With the patient was started on antibiotic treatment. This patient was started on Granix. PHYSICAL EXAM HEAD/FACE: No signs of trauma. EENT: No eye pain, no blurred vision, no tearing, no double vision, no ear pain, no ear discharge, no nose pain, no nasal congestion, no throat pain, no throat swelling, no mouth pain. RESPIRATORY: cough, no orthopnea, no SOB, no stridor, no wheezing. CARDIOVASCULAR: No chest pain, no edema, no palpitations, no syncope. GASTROINTESTINAL/ABDOMINAL: No abdominal pain, no constipation, no diarrhea, no nausea, no vomiting. GENITOURINARY: No abnormal discharge, no dysuria, no frequent urination, no hematuria. No complaints of pain in the genitals. MUSCULOSKELETAL: No back pain, no gout, no joint pain, no joint swelling, no muscle pain, no muscle stiffness, no neck pain. INTEGUMENTARY: No change in color, no change in hair/nails, no dryness, no lesion, no lumps, no rash. NEUROLOGICAL/PSYCH: No anxiety, not depressed, no emotional problem, no headache, no numbness, no pre-existing deficit, no history of seizures, no tremors, no weakness. HEMATOLOGIC/LYMPHATIC: Not anemic, no history of blood clots, no apparent bleeding, no bruising, glands not swollen. Assessment 1. History of esophageal cancer with the patient receiving chemotherapy treatment as a palliative with Dr. Tran in [facility]. 2. Chemo induced neutropenia 3. Sepsis 4. Failure to thrive 5. 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 Continue neutropenic precaution 2. Continue antibiotic treatment 3. continue Granix 300 mcg subcu daily 4. CBC daily. 5. Will hold any chemotherapy treatment for this patient at this time Vitals/Labs Vital Signs Date Time Temp Pulse Resp B/P (MAP) Pulse Ox O2 Delivery O2 Flow Rate FiO2 07/31/24 16:33 97.9 103 16 134/67 98 Room Air 2/20/25 11:06 21 07/31/24 07:48 0.0 Laboratory Tests 07/31/24 03:44 Medications Current Medications Acetaminophen 1,000 mg ONCE ONCE PO Last administered on 07/28/24at 14:14; Start 07/28/24 at 13:00; Stop 07/28/24 at 13:01; Status DC Ceftriaxone Sodium 1 gm ONCE ONCE IVPB Last administered on 07/28/24at 14:09; Start 07/28/24 at 13:00; Stop 07/28/24 at 13:01; Status DC Sodium Chloride 1,000 ml @ 0 mls/hr ONCE ONCE IV Last administered on 07/28/24at 15:27; Start 07/28/24 at 15:30; Stop 07/28/24 at 15:31; Status DC Albuterol 1 udvial [id number] IH Last administered on 07/31/24at 11:04; Start 07/28/24 at 18:00; Stop 08/27/24 at 17:59 Albuterol 1 udvial Q4HPRN PRN IH; Start 07/28/24 at 17:00; Stop 08/27/24 at 16:59 Azithromycin 250 ml @ 250 mls/hr Q24H IVPB Last administered on 07/30/24at 17:32; Start 07/28/24 at 17:00; Stop 08/02/24 at 16:59 Ceftriaxone Sodium 1 gm Q24H IVPB; Start 07/28/24 at 17:00; Stop 07/28/24 at 17:05; Status DC Enoxaparin Sodium 40 mg DAILY SQ Last administered on 07/29/24at 09:54; Start 07/29/24 at 09:00; Stop 08/28/24 at 08:59 Ceftriaxone Sodium 1 gm Q24H IVPB; Start 07/29/24 at 13:00; Stop 07/29/24 at 08:13; Status DC Hydromorphone HCl 0.5 mg Q3H3 PRN IVP Last administered on 07/30/24at 18:48; Start 07/28/24 at 22:00; Stop 08/02/24 at 21:59 Acetaminophen 650 mg Q6H PRN PO Last administered on 07/29/24at 16:27; Start 07/28/24 at 22:00; Stop 08/27/24 at 21:59 Acetaminophen 650 mg Q6H PRN PO; Start 07/28/24 at 22:00; Stop 08/27/24 at 21:59 Ondansetron HCl 4 mg Q6H PRN IVP; Start 07/28/24 at 22:00; Stop 08/27/24 at 21:59 Ceftriaxone Sodium 2 gm Q24H IVPB Last administered on 07/29/24at 12:42; Start 07/29/24 at 13:00; Stop 07/29/24 at 13:52; Status DC Sodium Chloride 4 ml STK-MED ONCE IH Last administered on 07/29/24at 11:24; Start 07/29/24 at 11:19; Stop 07/29/24 at 11:19; Status DC Vancomycin HCl 1 each AD IV; Start 07/29/24 at 14:00; Stop 07/29/24 at 14:33; Status DC Cefepime HCl 2 gm Q12H IVPB Last administered on 07/31/24at 13:31; Start 07/29/24 at 14:00; Stop 08/08/24 at 13:59 Fluconazole/ Sodium Chloride 400 mg Q24H IV Last administered on 07/31/24at 13:31; Start 07/29/24 at 14:00; Stop 08/08/24 at 13:59 Vancomycin HCl 500 ml @ 250 mls/hr ONCE ONCE IV; Start 07/29/24 at 14:30; Stop 07/29/24 at 14:33; Status DC Vancomycin HCl 250 ml @ 125 mls/hr Q12H IV; Start 07/30/24 at 02:30; Stop 07/29/24 at 14:33; Status DC Sodium Chloride 4 ml STK-MED ONCE IH Last administered on 07/29/24at 19:36; Start 07/29/24 at 19:00; Stop 07/29/24 at 19:00; Status DC Sodium Chloride 4 ml STK-MED ONCE IH Last administered on 07/29/24at 23:05; Start 07/29/24 at 22:41; Stop 07/29/24 at 22:41; Status DC Clotrimazole 10 mg Q6H MM Last administered on 07/31/24at 10:24; Start 07/30/24 at 21:00; Stop 08/29/24 at 20:59 Potassium Chloride 100 ml @ 100 mls/hr AD PRN IV; Start 07/30/24 at 18:30; Stop 08/29/24 at 18:29 Potassium Chloride 20 meq AD PRN PO; Start 07/30/24 at 18:30; Stop 08/29/24 at 18:29 Potassium Chloride 20 meq AD PRN PO Last administered on 07/30/24at 23:10; Start 07/30/24 at 18:30; Stop 08/29/24 at 18:29 Pharmacy Profile Note 1 each ONCE MISC; Start 07/30/24 at 18:30; Stop 07/30/24 at 18:37; Status DC Al Hydroxide/Mg Hydroxide/ Lidocaine HCl/ Diphenhydramine HCl TAKE (5-10)ML SWISH ... Q6H PRN PO Last administered on 07/31/24at 13:32; Start 07/30/24 at 19:00; Stop 08/29/24 at 18:59 KILEY SALDAÑA MD Jul 31, 2024 17:01
[2024-08-01] VITALS (12 sets, daily range): BP systolic 118–134; BP diastolic 59–73; PULSE 87–104; RESP 18–20; TEMP 98–99.1; O2SAT 94–98
[2024-08-01 04:42] LABS: BASOPHILS # (AUTO) 0.01 K/uL (0.00-0.20); BASOPHILS % (AUTO) 0.6 % (0.0-5.0); HEMATOCRIT 28.2 % (42-54); LYMPHOCYTES # (AUTO) 0.5 K/uL (1.0-4.8); LYMPHOCYTES % (AUTO) 29.2 % (21.0-51.0); MEAN CORPUSCULAR VOLUME 88.1 fL (79-99); MONOCYTES % (AUTO) 61.5 % (3.0-13.0); NEUTROPHILS # (AUTO) 0.1 K/uL (1.8-7.7); NEUTROPHILS % (AUTO) 8.7 % (40.0-77.0); PLATELET COUNT (AUTO) 155 K/uL (130-400); WHITE BLOOD COUNT (AUTO) 1.6 K/uL (4.8-10.8)
[2024-08-01 05:08] LABS: ALBUMIN 2.3 g/dL (3.5-5.0); BILIRUBIN,TOTAL 0.6 mg/dL (0.2-1.0); CREATININE 0.7 mg/dL (0.5-1.3); POTASSIUM 3.9 mmol/L (3.5-5.1); TOTAL PROTEIN, SERUM 7.1 g/dL (6.0-8.3)
--- NOTE | 2024-08-01 11:57 | PN ---
SUBJECTIVE: The patient was admitted for assessment and treatment of absolute neutropenia, fever chemotherapy-induced neutropenia, sepsis. The patient was started on Granix. He was also started on IV antibiotics, has been placed on reverse isolation. He has been treated for esophageal cancer with metastasis to the lung, currently denies any fever, chills, seizures. No chest pain, palpitations. No cough, wheeze or rhonchi. No nausea, vomiting, diarrhea. OBJECTIVE: GENERAL: He is awake, alert, oriented to person, time and place. Not in distress. VITAL SIGNS: Blood pressure 123/73, pulse 95, respiratory rate 18, temperature 98.1. HEENT: Normocephalic, atraumatic. LUNGS: Clear to auscultation. HEART: S1, S2 are distant. ABDOMEN: Soft, nontender. EXTREMITIES: No clubbing, cyanosis. LABORATORY DATA: WBC count 1.6, hemoglobin 9.6, platelets 155. Sodium 130, potassium 3.9, BUN 7, creatinine 0.7, albumin 2.3. Influenza A and B negative. COVID negative. Urine test was negative for leukocyte esterase and nitrite. Respiratory cultures were positive for Kayla albicans. ASSESSMENT AND PLAN: * Absolute neutropenia, resolving. Continue with Granix as per oncology. * Positive cultures for Kayla. Continue with Diflucan. * Fever and neutropenia. Continue with cefepime and Zithromax. * Hyponatremia. Continue to monitor. * Esophageal cancer. Follow up by oncologist. * Follow up in a.m. with results of tests. DOS: 08/01/2024 TID: [id number] RECEIPT: [id number] [facility]
--- NOTE | 2024-08-01 13:45 | PN ---
INFECTIOUS DISEASE PROGRESS NOTE Date of Service: Aug 01, 2024 SUBJECTIVE: This is a 73-year-old male patient who was seen and examined at bedside in room 407. Patient is awake, alert and oriented x3. Patient's oral mucositis improving. Continues on Mycelex and magic mouthwash. No fever reported this morning, temperature is 98.1. Slight improvement on the WBC slightly to 1.6. Continues on Granix as recommended by oncologist. The sputum culture results growing Kayla albicans. Patient continues on fluconazole, cefepime and azithromycin. No reports of nausea or vomiting. We will continue to monitor patient's care. PHYSICAL EXAM EYES: Anicteric. Pupils equal and reactive. HENT: No oral thrush seen, moist, Oral mucositis. NECK: Supple, no JVD or thyromegaly. LUNGS: Good air entry. No rales, no rhonchi. Crackles. CARDIOVASCULAR: S1, S2 regular. No murmur heard. ABDOMEN: Soft, non tender, bowel sounds present, no organomegaly. CENTRAL NERVOUS SYSTEM: Awake, alert, oriented x 3. SKIN: No rashes, no swelling. LYMPHATICS: No peripheral lymphadenopathy. MUSCULOSKELETAL: No joint swelling, erythema or tenderness. EXTREMITIES: No cyanosis or clubbing. BACK: No deformity, no pressure ulcer. GENITOURINARY: No dysuria or hematuria. Vital Sign (Last 12 Hours) 08/01/24 08/01/24 08/01/24 08/01/24 03:28 06:28 06:29 08:00 Temp 99.1 98.1 Pulse 96 93 93 95 Resp 20 18 18 18 B/P (MAP) 118/59 123/73 Pulse Ox 95 98 O2 Delivery Room Air N/A Room Air Room Air FiO2 21 08/01/24 08/01/24 08/01/24 11:16 11:17 12:00 Temp 98.1 Pulse 97 97 100 Resp 18 18 18 B/P (MAP) 124/63 Pulse Ox 97 O2 Delivery N/A Room Air Room Air FiO2 21 Intake & Output (last 24hrs) 07/31/24 07/31/24 08/01/24 15:00 23:00 07:00 Intake Total 1250 ml 100.0 ml Output Total 400 ml 500 ml Balance 850 ml -400.0 ml LABS: Laboratory: Test 2/21/25 04:12 Range/Units White Blood Count 1.6 L 4.8-10.8 K/uL Red Blood Count 3.20 L 4.50-6.20 MIL/uL Hemoglobin 9.6 L 14.0-18.0 g/dL Hematocrit 28.2 L 42-54 % Mean Corpuscular Volume 88.1 79-99 fL Mean Corpuscular Hemoglobin 30.0 27.0-33.0 pg Mean Corpuscular Hemoglobin Concent 34.0 32.0-36.0 g/dL Red Cell Distribution Width 14.0 11.0-15.5 % Platelet Count 155 # 130-400 K/uL Mean Platelet Volume 9.9 7.5-10.5 fL Immature Granulocyte % (Auto) 0.0 0-1 % Neutrophils (%) (Auto) 8.7 L 40.0-77.0 % Lymphocytes (%) (Auto) 29.2 21.0-51.0 % Monocytes (%) (Auto) 61.5 H 3.0-13.0 % Eosinophils (%) (Auto) 0.0 0.0-8.0 % Basophils (%) (Auto) 0.6 0.0-5.0 % Neutrophils # (Auto) 0.1 L 1.8-7.7 K/uL Lymphocytes # (Auto) 0.5 L 1.0-4.8 K/uL Monocytes # (Auto) 1.0 0.1-1.0 K/uL Eosinophils # (Auto) 0.00 0.00-0.70 K/uL Basophils # (Auto) 0.01 0.00-0.20 K/uL Absolute Immature Granulocyte (auto 0.00 0-1 K/uL Nucleated Red Blood Cells 0.0 0.0-0.19 % Sodium Level 130 L 136-145 mmol/L Potassium Level 3.9 3.5-5.1 mmol/L Chloride Level 98 L 101-111 mmol/L Carbon Dioxide Level 26 21-32 mmol/L Blood Urea Nitrogen 7 7-18 mg/dL Creatinine 0.7 0.5-1.3 mg/dL Glomerular Filtration Rate Calc 97 >90 mL/min Random Glucose 97 70-105 mg/dL Total Calcium 8.0 L 8.5-10.1 mg/dL Total Bilirubin 0.6 0.2-1.0 mg/dL Aspartate Amino Transf (AST/SGOT) 22 10-37 U/L Alanine Aminotransferase (ALT/SGPT) 25 12-78 U/L Alkaline Phosphatase 59 50-136 U/L Total Protein 7.1 6.0-8.3 g/dL Albumin 2.3 L 3.5-5.0 g/dL DIAGNOSTICS / RADIOLOGY: PATIENT: CORY PIERRE MR#: [id number] : 1950 SEX: M AGE: 73 LOCATION: [facility] ORDER [id number] STATUS: REG ER REPORT#: [id number] SERVICE 1239 REASON: fever ORDERING PHYSICIAN: KURTIS BAILEY MD PROCEDURE: CXR1VW - CHEST 1VW CHEST 1VW REASON: fever COMPARISON: None. FINDINGS: There is 2 cm well-circumscribed mass midportion of the right lung. There is some faint nodularity in the left lung which could be some smaller nodules. There are no acute appearing infiltrates. Heart size is normal. There is a chest port in place. Be some and bony thorax appear unremarkable. IMPRESSION: 1. 2 cm nodule right midlung, there may be some smaller nodules present in the left lung. 2. No evidence of an acute infiltrate. DICTATED BY: LISA CHOWDHURY MD DATE: 07/28/241317 ASSESSMENT: Healthcare associated pneumonia. Sepsis. Chemotherapy induced neutropenia. 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 Underlying immunosuppression. Oral Mucositis. Hyponatremia. PLAN: Continue fluconazole. Continue cefepime. Continue azithromycin. Continue Mycelex. Continue magic mouthwash. We will follow up on the culture results. Continues on Granix as recommended by Oncologist. This case was reviewed and discussed with my supervising physician and the above assessment and plan was formulated and agreed upon. ATTESTATION BY PHYSICIAN I have seen and examined the patient. I reviewed the documentation, medical decision making, and treatment plan as noted by the mid-level provider above. I agree with the findings and plan of care. ANA M MELLO MD, MIRTA L HERBARIUM CURATOR Aug 01, 2024 13:44
--- NOTE | 2024-08-01 15:00 | PN ---
Patient is a 73-year-old male coming in to be evaluated for fever. Per family member and patient he has been having fever for a couple of days. He was evaluated at the urgent care and was told had an upper respiratory infection. Patient does has a history of cancer in his currently on chemotherapy. Patient was to follow up at the emergency room per MD Pugh for evaluation of a pneumonia. Patient was found to have neutropenic fever. the patient was started on antibiotic treatment. This patient was started on Granix. White blood count continue to be low. PHYSICAL EXAM HEAD/FACE: No signs of trauma. EENT: No eye pain, no blurred vision, no tearing, no double vision, no ear pain, no ear discharge, no nose pain, no nasal congestion, no throat pain, no throat swelling, no mouth pain. RESPIRATORY: cough, no orthopnea, no SOB, no stridor, no wheezing. CARDIOVASCULAR: No chest pain, no edema, no palpitations, no syncope. GASTROINTESTINAL/ABDOMINAL: No abdominal pain, no constipation, no diarrhea, no nausea, no vomiting. GENITOURINARY: No abnormal discharge, no dysuria, no frequent urination, no hematuria. No complaints of pain in the genitals. MUSCULOSKELETAL: No back pain, no gout, no joint pain, no joint swelling, no muscle pain, no muscle stiffness, no neck pain. INTEGUMENTARY: No change in color, no change in hair/nails, no dryness, no lesion, no lumps, no rash. NEUROLOGICAL/PSYCH: No anxiety, not depressed, no emotional problem, no headache, no numbness, no pre-existing deficit, no history of seizures, no tremors, no weakness. HEMATOLOGIC/LYMPHATIC: Not anemic, no history of blood clots, no apparent bleeding, no bruising, glands not swollen. Assessment 1. History of esophageal cancer with the patient receiving chemotherapy treatment as a palliative with Dr. Tran in [facility]. 2. Chemo induced neutropenia 3. Sepsis 4. Failure to thrive 5. 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 Continue neutropenic precaution 2. Continue antibiotic treatment 3. continue Granix 300 mcg subcu daily 4. CBC daily. 5. Will hold any chemotherapy treatment for this patient at this time 6. Patient have Port-A-Cath. his port could be used for antibiotics. Vitals/Labs Vital Signs Date Time Temp Pulse Resp B/P (MAP) Pulse Ox O2 Delivery O2 Flow Rate FiO2 08/01/24 12:00 98.1 100 18 124/63 97 Room Air 08/01/24 11:16 21 07/31/24 19:20 0 Laboratory Tests 08/01/24 04:12 Medications Current Medications Acetaminophen 1,000 mg ONCE ONCE PO Last administered on 07/28/24at 14:14; Start 07/28/24 at 13:00; Stop 07/28/24 at 13:01; Status DC Ceftriaxone Sodium 1 gm ONCE ONCE IVPB Last administered on 07/28/24at 14:09; Start 07/28/24 at 13:00; Stop 07/28/24 at 13:01; Status DC Sodium Chloride 1,000 ml @ 0 mls/hr ONCE ONCE IV Last administered on 07/28/24at 15:27; Start 07/28/24 at 15:30; Stop 07/28/24 at 15:31; Status DC Albuterol 1 udvial [id number] IH Last administered on 08/01/24at 11:17; Start 07/28/24 at 18:00; Stop 08/27/24 at 17:59 Albuterol 1 udvial Q4HPRN PRN IH; Start 07/28/24 at 17:00; Stop 08/27/24 at 16:59 Azithromycin 250 ml @ 250 mls/hr Q24H IVPB Last administered on 07/31/24at 18:46; Start 07/28/24 at 17:00; Stop 08/02/24 at 16:59 Ceftriaxone Sodium 1 gm Q24H IVPB; Start 07/28/24 at 17:00; Stop 07/28/24 at 17:05; Status DC Enoxaparin Sodium 40 mg DAILY SQ Last administered on 08/01/24at 09:12; Start 07/29/24 at 09:00; Stop 08/28/24 at 08:59 Ceftriaxone Sodium 1 gm Q24H IVPB; Start 07/29/24 at 13:00; Stop 07/29/24 at 08:13; Status DC Hydromorphone HCl 0.5 mg Q3H3 PRN IVP Last administered on 07/31/24at 18:48; Start 07/28/24 at 22:00; Stop 08/02/24 at 21:59 Acetaminophen 650 mg Q6H PRN PO Last administered on 07/29/24at 16:27; Start 07/28/24 at 22:00; Stop 08/27/24 at 21:59 Acetaminophen 650 mg Q6H PRN PO; Start 07/28/24 at 22:00; Stop 08/27/24 at 21:59 Ondansetron HCl 4 mg Q6H PRN IVP; Start 07/28/24 at 22:00; Stop 08/27/24 at 21:59 Ceftriaxone Sodium 2 gm Q24H IVPB Last administered on 07/29/24at 12:42; Start 07/29/24 at 13:00; Stop 07/29/24 at 13:52; Status DC Sodium Chloride 4 ml STK-MED ONCE IH Last administered on 07/29/24at 11:24; Start 07/29/24 at 11:19; Stop 07/29/24 at 11:19; Status DC Vancomycin HCl 1 each AD IV; Start 07/29/24 at 14:00; Stop 07/29/24 at 14:33; Status DC Cefepime HCl 2 gm Q12H IVPB Last administered on 08/01/24at 01:18; Start 07/29/24 at 14:00; Stop 08/08/24 at 13:59 Fluconazole/ Sodium Chloride 400 mg Q24H IV Last administered on 07/31/24at 13:31; Start 07/29/24 at 14:00; Stop 08/08/24 at 13:59 Vancomycin HCl 500 ml @ 250 mls/hr ONCE ONCE IV; Start 07/29/24 at 14:30; Stop 07/29/24 at 14:33; Status DC Vancomycin HCl 250 ml @ 125 mls/hr Q12H IV; Start 07/30/24 at 02:30; Stop 07/29/24 at 14:33; Status DC Sodium Chloride 4 ml STK-MED ONCE IH Last administered on 07/29/24at 19:36; Start 07/29/24 at 19:00; Stop 07/29/24 at 19:00; Status DC Sodium Chloride 4 ml STK-MED ONCE IH Last administered on 07/29/24at 23:05; Start 07/29/24 at 22:41; Stop 07/29/24 at 22:41; Status DC Clotrimazole 10 mg Q6H MM Last administered on 08/01/24at 09:12; Start 07/30/24 at 21:00; Stop 08/29/24 at 20:59 Potassium Chloride 100 ml @ 100 mls/hr AD PRN IV; Start 07/30/24 at 18:30; Stop 08/29/24 at 18:29 Potassium Chloride 20 meq AD PRN PO; Start 07/30/24 at 18:30; Stop 08/29/24 at 18:29 Potassium Chloride 20 meq AD PRN PO Last administered on 07/30/24at 23:10; Start 07/30/24 at 18:30; Stop 08/29/24 at 18:29 Pharmacy Profile Note 1 each ONCE MISC; Start 07/30/24 at 18:30; Stop 07/30/24 at 18:37; Status DC Al Hydroxide/Mg Hydroxide/ Lidocaine HCl/ Diphenhydramine HCl TAKE (5-10)ML SWISH ... Q6H PRN PO Last administered on 08/01/24at 09:15; Start 07/30/24 at 19:00; Stop 08/29/24 at 18:59 KILEY SALDAÑA MD Aug 01, 2024 15:00
--- NOTE | 2024-08-01 16:52 | PN ---
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 He remains on neutropenic precautions currently on Diflucan cefepime and azithromycin. He is s/p Granix. Tracheal cultures have revealed Kayla. REVIEW OF SYSTEMS: 12 point ROS reviewed with patient. Pertinent positives mentioned above. Otherwise negative. PHYSICAL EXAM: GENERAL: alert, weak, awake oriented x 3 HEENT: EOMI, Sclera non icteric, moist mucosa , generalized rash to face and scalp NECK: Supple, no JVD, trachea midline LUNGS: diminished breath sounds bilaterally. No wheezes HEART: Regular rate and rhythm. Normal S1 and S2, without murmurs ABD: Abdomen soft, nontender. Bowel sounds present EXT: No clubbing cyanosis or edema NEURO: Alert and oriented to person, follows commands Vital Signs (last 8hr) Date Time Temp Pulse Resp B/P (MAP) Pulse Ox O2 Delivery O2 Flow Rate FiO2 08/01/24 12:00 98.1 100 18 124/63 97 Room Air 08/01/24 11:17 97 18 08/01/24 11:16 97 18 N/A Room Air 21 LABS: Hematology Labs: Test 08/01/24 04:12 Range/Units White Blood Count 1.6 L 4.8-10.8 K/uL Red Blood Count 3.20 L 4.50-6.20 MIL/uL Hemoglobin 9.6 L 14.0-18.0 g/dL Hematocrit 28.2 L 42-54 % Mean Corpuscular Volume 88.1 79-99 fL Mean Corpuscular Hemoglobin 30.0 27.0-33.0 pg Mean Corpuscular Hemoglobin Concent 34.0 32.0-36.0 g/dL Red Cell Distribution Width 14.0 11.0-15.5 % Platelet Count 155 # 130-400 K/uL Mean Platelet Volume 9.9 7.5-10.5 fL Immature Granulocyte % (Auto) 0.0 0-1 % Neutrophils (%) (Auto) 8.7 L 40.0-77.0 % Lymphocytes (%) (Auto) 29.2 21.0-51.0 % Monocytes (%) (Auto) 61.5 H 3.0-13.0 % Eosinophils (%) (Auto) 0.0 0.0-8.0 % Basophils (%) (Auto) 0.6 0.0-5.0 % Neutrophils # (Auto) 0.1 L 1.8-7.7 K/uL Lymphocytes # (Auto) 0.5 L 1.0-4.8 K/uL Monocytes # (Auto) 1.0 0.1-1.0 K/uL Eosinophils # (Auto) 0.00 0.00-0.70 K/uL Basophils # (Auto) 0.01 0.00-0.20 K/uL Absolute Immature Granulocyte (auto 0.00 0-1 K/uL Nucleated Red Blood Cells 0.0 0.0-0.19 % Chemistry Labs: Test 08/01/24 04:12 Range/Units Sodium Level 130 L 136-145 mmol/L Potassium Level 3.9 3.5-5.1 mmol/L Chloride Level 98 L 101-111 mmol/L Carbon Dioxide Level 26 21-32 mmol/L Blood Urea Nitrogen 7 7-18 mg/dL Creatinine 0.7 0.5-1.3 mg/dL Glomerular Filtration Rate Calc 97 >90 mL/min Random Glucose 97 70-105 mg/dL Total Calcium 8.0 L 8.5-10.1 mg/dL Total Bilirubin 0.6 0.2-1.0 mg/dL Aspartate Amino Transf (AST/SGOT) 22 10-37 U/L Alanine Aminotransferase (ALT/SGPT) 25 12-78 U/L Alkaline Phosphatase 59 50-136 U/L Total Protein 7.1 6.0-8.3 g/dL Albumin 2.3 L 3.5-5.0 g/dL DIAGNOSTICS / RADIOLOGY RESULTS: [ ] PLAN Follow oncology recommendations Broad spectrum antibiotics follow ID recs panculture Negative for thyphoid, Influenza A and B, covid and strep CT of the chest reviewed + metastatic findings NEURO: Minimize central acting medications as possible. Maintain fall precautions, adequate lighting during the day PULMONARY: Supplemental 02 as needed. Maintain aspiration precautions at all times CARDIOVASCULAR: Follow hemodynamics. Vital signs per facility protocol GI & NUTRITION: Continue with nutritional support. Continue stool softeners and laxatives as needed. KIDNEYS & ELECTROLYTES: Strict monitoring of intake, output and overall fluid balance. Avoid nephrotoxic medications to the extent possible. Medications to be dosed according to renal function. Monitor electrolytes and replace as needed ENDOCRINE: Maintain blood glucose between 100-180 at all times. Hypoglycemia protocol in place INFECTIOUS DISEASE: Trend temperature, WBC and procalcitonin level Follow cultures, deescalate antibiotics as soon as possible. Panculture if new onset fever ONCOLOGY/HEMATOLOGY/COAGULATION: Monitor for s/s of bleeding Monitor hemoglobin, coagulation studies as needed SKIN: Pressure ulcer prevention per facility protocol Specialty mattress ORTHO/REHAB: Continue PT/OT Prophylaxis: Continue GI and DVT prophylaxis Code Status: Full Resuscitation Disposition: TBD Other: Total patient care time exceeds 35 minutes excluding all procedures. APRIL DESAI Aug 01, 2024 16:52
[2024-08-02] VITALS (13 sets, daily range): BP systolic 117–135; BP diastolic 61–71; PULSE 81–99; RESP 18–20; TEMP 97.6–98.7; O2SAT 96–99
[2024-08-02 04:39] LABS: BASOPHILS # (AUTO) 0.05 K/uL (0.00-0.20); BASOPHILS % (AUTO) 0.9 % (0.0-5.0); HEMATOCRIT 29.1 % (42-54); IMMATURE GRANULOCYTE ABSOLUTE 0.06 K/uL (0-1); LYMPHOCYTES # (AUTO) 0.8 K/uL (1.0-4.8); LYMPHOCYTES % (AUTO) 15.9 % (21.0-51.0); MEAN CORPUSCULAR HEMOGLOBIN 30.4 pg (27.0-33.0); MEAN CORPUSCULAR HGB CONC 34.4 g/dL (32.0-36.0); MEAN CORPUSCULAR VOLUME 88.4 fL (79-99); MONOCYTES # (AUTO) 1.7 K/uL (0.1-1.0); MONOCYTES % (AUTO) 32.9 % (3.0-13.0); NEUTROPHILS # (AUTO) 2.6 K/uL (1.8-7.7); NEUTROPHILS % (AUTO) 49.2 % (40.0-77.0); PLATELET COUNT (AUTO) 192 K/uL (130-400); RED BLOOD CELL COUNT(AUTO) 3.29 MIL/uL (4.50-6.20); RED CELL DISTRIBUTION WIDTH 14.2 % (11.0-15.5); WHITE BLOOD COUNT (AUTO) 5.3 K/uL (4.8-10.8)
[2024-08-02 04:58] LABS: ALBUMIN 2.4 g/dL (3.5-5.0); BILIRUBIN,TOTAL 0.4 mg/dL (0.2-1.0); CREATININE 0.7 mg/dL (0.5-1.3); POTASSIUM 3.7 mmol/L (3.5-5.1); TOTAL PROTEIN, SERUM 7.1 g/dL (6.0-8.3)
--- NOTE | 2024-08-02 17:47 | PN ---
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 He remains on neutropenic precautions currently on Diflucan cefepime and azithromycin. He is s/p Granix. improved WBC at 5.2 , in good spirits Tracheal cultures have revealed Kayla. REVIEW OF SYSTEMS: 12 point ROS reviewed with patient. Pertinent positives mentioned above. Otherwise negative. PHYSICAL EXAM: GENERAL: alert, weak, awake oriented x 3 HEENT: EOMI, Sclera non icteric, moist mucosa , generalized rash to face and scalp NECK: Supple, no JVD, trachea midline LUNGS: diminished breath sounds bilaterally. No wheezes HEART: Regular rate and rhythm. Normal S1 and S2, without murmurs ABD: Abdomen soft, nontender. Bowel sounds present EXT: No clubbing cyanosis or edema NEURO: Alert and oriented to person, follows commands Vital Signs (last 8hr) Date Time Temp Pulse Resp B/P (MAP) Pulse Ox O2 Delivery O2 Flow Rate FiO2 08/02/24 12:00 98.4 99 18 122/61 96 Room Air 21 08/02/24 11:43 86 18 08/02/24 11:42 86 18 N/A Room Air 21 LABS: Hematology Labs: Test 08/02/24 04:27 Range/Units White Blood Count 5.3 4.8-10.8 K/uL Red Blood Count 3.29 L 4.50-6.20 MIL/uL Hemoglobin 10.0 L 14.0-18.0 g/dL Hematocrit 29.1 L 42-54 % Mean Corpuscular Volume 88.4 79-99 fL Mean Corpuscular Hemoglobin 30.4 27.0-33.0 pg Mean Corpuscular Hemoglobin Concent 34.4 32.0-36.0 g/dL Red Cell Distribution Width 14.2 11.0-15.5 % Platelet Count 192 130-400 K/uL Mean Platelet Volume 9.6 7.5-10.5 fL Immature Granulocyte % (Auto) 1.1 H 0-1 % Neutrophils (%) (Auto) 49.2 40.0-77.0 % Lymphocytes (%) (Auto) 15.9 L 21.0-51.0 % Monocytes (%) (Auto) 32.9 H 3.0-13.0 % Eosinophils (%) (Auto) 0.0 0.0-8.0 % Basophils (%) (Auto) 0.9 0.0-5.0 % Neutrophils # (Auto) 2.6 1.8-7.7 K/uL Lymphocytes # (Auto) 0.8 L 1.0-4.8 K/uL Monocytes # (Auto) 1.7 H 0.1-1.0 K/uL Eosinophils # (Auto) 0.00 0.00-0.70 K/uL Basophils # (Auto) 0.05 0.00-0.20 K/uL Absolute Immature Granulocyte (auto 0.06 0-1 K/uL Nucleated Red Blood Cells 0.0 0.0-0.19 % Chemistry Labs: Test 08/02/24 04:27 Range/Units Sodium Level 133 L 136-145 mmol/L Potassium Level 3.7 3.5-5.1 mmol/L Chloride Level 101 101-111 mmol/L Carbon Dioxide Level 27 21-32 mmol/L Blood Urea Nitrogen 7 7-18 mg/dL Creatinine 0.7 0.5-1.3 mg/dL Glomerular Filtration Rate Calc 97 >90 mL/min Random Glucose 99 70-105 mg/dL Total Calcium 8.1 L 8.5-10.1 mg/dL Total Bilirubin 0.4 0.2-1.0 mg/dL Aspartate Amino Transf (AST/SGOT) 19 10-37 U/L Alanine Aminotransferase (ALT/SGPT) 24 12-78 U/L Alkaline Phosphatase 64 50-136 U/L Total Protein 7.1 6.0-8.3 g/dL Albumin 2.4 L 3.5-5.0 g/dL DIAGNOSTICS / RADIOLOGY RESULTS: [ ] PLAN Follow oncology recommendations Broad spectrum antibiotics follow ID recs panculture Negative for thyphoid, Influenza A and B, covid and strep CT of the chest reviewed + metastatic findings NEURO: Minimize central acting medications as possible. Maintain fall precautions, adequate lighting during the day PULMONARY: Supplemental 02 as needed. Maintain aspiration precautions at all times CARDIOVASCULAR: Follow hemodynamics. Vital signs per facility protocol GI & NUTRITION: Continue with nutritional support. Continue stool softeners and laxatives as needed. KIDNEYS & ELECTROLYTES: Strict monitoring of intake, output and overall fluid balance. Avoid nephrotoxic medications to the extent possible. Medications to be dosed according to renal function. Monitor electrolytes and replace as needed ENDOCRINE: Maintain blood glucose between 100-180 at all times. Hypoglycemia protocol in place INFECTIOUS DISEASE: Trend temperature, WBC and procalcitonin level Follow cultures, deescalate antibiotics as soon as possible. Panculture if new onset fever ONCOLOGY/HEMATOLOGY/COAGULATION: Monitor for s/s of bleeding Monitor hemoglobin, coagulation studies as needed SKIN: Pressure ulcer prevention per facility protocol Specialty mattress ORTHO/REHAB: Continue PT/OT Prophylaxis: Continue GI and DVT prophylaxis Code Status: Full Resuscitation Disposition: TBD Other: Total patient care time exceeds 35 minutes excluding all procedures. APRIL DESAI Aug 02, 2024 17:47
--- NOTE | 2024-08-02 21:35 | PN ---
SUBJECTIVE: The patient is examined at bedside, comfortable, afebrile, tolerating oral intake. He is on IV antibiotics. OBJECTIVE: GENERAL: He is currently, awake, alert, oriented in person, time, and place, not in distress. VITAL SIGNS: Blood pressure of 122/61, pulse 99, respiratory rate is 18. HEENT: Normocephalic, atraumatic. LUNGS: Clear to auscultation. HEART: S1, S2 are distant. ABDOMEN: Soft, nontender. EXTREMITIES: No clubbing or cyanosis, no edema. LABORATORY DATA: WBC count up to 5.3, hemoglobin 10, platelets up to 192,000. Sodium 133, potassium 3.7, BUN 7, creatinine is 0.7, albumin 2.4. ASSESSMENT AND PLAN: * Absolute neutropenia induced by chemotherapy, resolved. Continue recommendations by Oncology. * Neutropenia, fever, sepsis. Continue current antibiotics. * Positive sputum cultures for Kayla. Continue with Diflucan. * Esophageal cancer. Chemotherapy has been placed on hold. There is apparent metastatic disease to the lung. Continue to monitor. Plan to discharge when cleared by Oncology. DOS: 08/02/2024 TID: [id number] RECEIPT: [id number] MTDD
[2024-08-03] VITALS (12 sets, daily range): BP systolic 112–139; BP diastolic 65–83; PULSE 78–103; RESP 18–20; TEMP 97.9–99.2; O2SAT 96–99
--- NOTE | 2024-08-03 07:06 | HMCIMG ---
CHEST 1VW HISTORY: Pneumonia COMPARISON: None FINDINGS: A frontal projection of the chest was obtained. There are bilateral lower lung reticular nodular pulmonary infiltrates. There are superimposed bilateral lower lung nodules. The heart is borderline enlarged. Port-A-Cath is seen entering from the right. No evidence of aortic calcification is seen. IMPRESSION: 1. Bilateral lower lung reticular nodular pulmonary infiltrates, nodules. There are superimposed bilateral lower lung nodules.
--- NOTE | 2024-08-03 11:30 | NUR ---
DR MELLO HERE NOTIFIED PATIENT HE WILL BE STAYING ONE MORE DAY.
[2024-08-03 12:16] LABS: BASOPHILS # (AUTO) 0.11 K/uL (0.00-0.20); BASOPHILS % (AUTO) 0.8 % (0.0-5.0); HEMATOCRIT 32.1 % (42-54); LYMPHOCYTES # (AUTO) 1.4 K/uL (1.0-4.8); LYMPHOCYTES % (AUTO) 10.5 % (21.0-51.0); MEAN CORPUSCULAR HEMOGLOBIN 30.3 pg (27.0-33.0); MEAN CORPUSCULAR HGB CONC 33.6 g/dL (32.0-36.0); MEAN CORPUSCULAR VOLUME 89.9 fL (79-99); MONOCYTES # (AUTO) 1.7 K/uL (0.1-1.0); MONOCYTES % (AUTO) 12.4 % (3.0-13.0); NEUTROPHILS # (AUTO) 9.8 K/uL (1.8-7.7); NEUTROPHILS % (AUTO) 71.9 % (40.0-77.0); NUCLEATED RED BLOOD CELLS 0.1 % (0.0-0.19); PLATELET COUNT (AUTO) 261 K/uL (130-400); RED BLOOD CELL COUNT(AUTO) 3.57 MIL/uL (4.50-6.20); RED CELL DISTRIBUTION WIDTH 14.4 % (11.0-15.5); WHITE BLOOD COUNT (AUTO) 13.6 K/uL (4.8-10.8)
[2024-08-03 12:33] LABS: ALBUMIN 2.6 g/dL (3.5-5.0); BILIRUBIN,TOTAL 0.3 mg/dL (0.2-1.0); CREATININE 0.7 mg/dL (0.5-1.3); POTASSIUM 3.5 mmol/L (3.5-5.1); TOTAL PROTEIN, SERUM 7.5 g/dL (6.0-8.3)
--- NOTE | 2024-08-03 15:25 | PN ---
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 He remains on neutropenic precautions currently on Diflucan cefepime and azithromycin. He is s/p Granix. improved WBC at 13.6 Tracheal cultures have revealed Kayla.CXR reveals : Bilateral lower lung reticular nodular pulmonary infiltrates,nodules. There are superimposed bilateral lower lung nodules. Which are unchanged from prior studies and cons istent with his history of metastasis REVIEW OF SYSTEMS: 12 point ROS reviewed with patient. Pertinent positives mentioned above. Otherwise negative. PHYSICAL EXAM: GENERAL: alert, weak, awake oriented x 3 HEENT: EOMI, Sclera non icteric, moist mucosa , generalized rash to face and scalp NECK: Supple, no JVD, trachea midline LUNGS: diminished breath sounds bilaterally. No wheezes HEART: Regular rate and rhythm. Normal S1 and S2, without murmurs ABD: Abdomen soft, nontender. Bowel sounds present EXT: No clubbing cyanosis or edema NEURO: Alert and oriented to person, follows commands Vital Signs (last 8hr) Date Time Temp Pulse Resp B/P (MAP) Pulse Ox O2 Delivery O2 Flow Rate FiO2 08/03/24 11:43 98.8 85 18 132/68 96 Room Air 21 08/03/24 11:24 81 18 08/03/24 08:00 99.0 99 20 129/67 95 Room Air 21 LABS: Hematology Labs: Test 08/03/24 11:42 Range/Units White Blood Count 13.6 H 4.8-10.8 K/uL Red Blood Count 3.57 L 4.50-6.20 MIL/uL Hemoglobin 10.8 L 14.0-18.0 g/dL Hematocrit 32.1 L 42-54 % Mean Corpuscular Volume 89.9 79-99 fL Mean Corpuscular Hemoglobin 30.3 27.0-33.0 pg Mean Corpuscular Hemoglobin Concent 33.6 32.0-36.0 g/dL Red Cell Distribution Width 14.4 11.0-15.5 % Platelet Count 261 # 130-400 K/uL Mean Platelet Volume 9.4 7.5-10.5 fL Immature Granulocyte % (Auto) 4.4 H 0-1 % Neutrophils (%) (Auto) 71.9 40.0-77.0 % Lymphocytes (%) (Auto) 10.5 L 21.0-51.0 % Monocytes (%) (Auto) 12.4 3.0-13.0 % Eosinophils (%) (Auto) 0.0 0.0-8.0 % Basophils (%) (Auto) 0.8 0.0-5.0 % Neutrophils # (Auto) 9.8 H 1.8-7.7 K/uL Lymphocytes # (Auto) 1.4 1.0-4.8 K/uL Monocytes # (Auto) 1.7 H 0.1-1.0 K/uL Eosinophils # (Auto) 0.00 0.00-0.70 K/uL Basophils # (Auto) 0.11 0.00-0.20 K/uL Absolute Immature Granulocyte (auto 0.60 0-1 K/uL Nucleated Red Blood Cells 0.1 0.0-0.19 % Chemistry Labs: Test 08/03/24 11:42 Range/Units Sodium Level 131 L 136-145 mmol/L Potassium Level 3.5 3.5-5.1 mmol/L Chloride Level 99 L 101-111 mmol/L Carbon Dioxide Level 28 21-32 mmol/L Blood Urea Nitrogen 7 7-18 mg/dL Creatinine 0.7 0.5-1.3 mg/dL Glomerular Filtration Rate Calc 97 >90 mL/min Random Glucose 88 70-105 mg/dL Total Calcium 8.3 L 8.5-10.1 mg/dL Total Bilirubin 0.3 0.2-1.0 mg/dL Aspartate Amino Transf (AST/SGOT) 19 10-37 U/L Alanine Aminotransferase (ALT/SGPT) 21 12-78 U/L Alkaline Phosphatase 107 50-136 U/L Total Protein 7.5 6.0-8.3 g/dL Albumin 2.6 L 3.5-5.0 g/dL DIAGNOSTICS / RADIOLOGY RESULTS: [ ] PLAN Follow oncology recommendations Broad spectrum antibiotics follow ID recs panculture Negative for thyphoid, Influenza A and B, covid and strep CT of the chest reviewed + metastatic findings NEURO: Minimize central acting medications as possible. Maintain fall precautions, adequate lighting during the day PULMONARY: Supplemental 02 as needed. Maintain aspiration precautions at all times CARDIOVASCULAR: Follow hemodynamics. Vital signs per facility protocol GI & NUTRITION: Continue with nutritional support. Continue stool softeners and laxatives as needed. KIDNEYS & ELECTROLYTES: Strict monitoring of intake, output and overall fluid balance. Avoid nephrotoxic medications to the extent possible. Medications to be dosed according to renal function. Monitor electrolytes and replace as needed ENDOCRINE: Maintain blood glucose between 100-180 at all times. Hypoglycemia protocol in place INFECTIOUS DISEASE: Trend temperature, WBC and procalcitonin level Follow cultures, deescalate antibiotics as soon as possible. Panculture if new onset fever ONCOLOGY/HEMATOLOGY/COAGULATION: Monitor for s/s of bleeding Monitor hemoglobin, coagulation studies as needed SKIN: Pressure ulcer prevention per facility protocol Specialty mattress ORTHO/REHAB: Continue PT/OT Prophylaxis: Continue GI and DVT prophylaxis Code Status: Full Resuscitation Disposition: TBD Other: Total patient care time exceeds 35 minutes excluding all procedures. APRIL DESAI Aug 03, 2024 15:25
--- NOTE | 2024-08-03 16:17 | PN ---
INFECTIOUS DISEASE PROGRESS NOTE Date of Service: Aug 03, 2024 SUBJECTIVE: This 73 year old male patient is being seen today at bedside. No fever or chills. No nausea or vomiting. Patient denies chest pain or shortness of breath. No abdominal pain, dysuria or hematuria. Patient is calm at this time. Patient remains on cefepime and diflucan tolerating well. WBC 13.6 . No acute events reported by nurse. PHYSICAL EXAM EYES: Anicteric. Pupils equal and reactive. HENT: No oral thrush seen, moist, Oral mucositis. NECK: Supple, no JVD or thyromegaly. LUNGS: Good air entry. No rales, no rhonchi. Crackles. CARDIOVASCULAR: S1, S2 regular. No murmur heard. ABDOMEN: Soft, non tender, bowel sounds present, no organomegaly. CENTRAL NERVOUS SYSTEM: Awake, alert, oriented x 3. SKIN: No rashes, no swelling. LYMPHATICS: No peripheral lymphadenopathy. MUSCULOSKELETAL: No joint swelling, erythema or tenderness. EXTREMITIES: No cyanosis or clubbing. BACK: No deformity, no pressure ulcer. GENITOURINARY: No dysuria or hematuria. Vital Sign (Last 12 Hours) 08/03/24 08/03/24 08/03/24 08/03/24 07:06 07:07 08:00 11:24 Temp 99.0 Pulse 89 89 99 81 Resp 18 18 20 18 B/P (MAP) 129/67 Pulse Ox 95 O2 Delivery N/A Room Air Room Air FiO2 21 21 08/03/24 11:43 Temp 98.8 Pulse 85 Resp 18 B/P (MAP) 132/68 Pulse Ox 96 O2 Delivery Room Air FiO2 21 LABS: Laboratory: Test 08/03/24 11:42 Range/Units White Blood Count 13.6 H 4.8-10.8 K/uL Red Blood Count 3.57 L 4.50-6.20 MIL/uL Hemoglobin 10.8 L 14.0-18.0 g/dL Hematocrit 32.1 L 42-54 % Mean Corpuscular Volume 89.9 79-99 fL Mean Corpuscular Hemoglobin 30.3 27.0-33.0 pg Mean Corpuscular Hemoglobin Concent 33.6 32.0-36.0 g/dL Red Cell Distribution Width 14.4 11.0-15.5 % Platelet Count 261 # 130-400 K/uL Mean Platelet Volume 9.4 7.5-10.5 fL Immature Granulocyte % (Auto) 4.4 H 0-1 % Neutrophils (%) (Auto) 71.9 40.0-77.0 % Lymphocytes (%) (Auto) 10.5 L 21.0-51.0 % Monocytes (%) (Auto) 12.4 3.0-13.0 % Eosinophils (%) (Auto) 0.0 0.0-8.0 % Basophils (%) (Auto) 0.8 0.0-5.0 % Neutrophils # (Auto) 9.8 H 1.8-7.7 K/uL Lymphocytes # (Auto) 1.4 1.0-4.8 K/uL Monocytes # (Auto) 1.7 H 0.1-1.0 K/uL Eosinophils # (Auto) 0.00 0.00-0.70 K/uL Basophils # (Auto) 0.11 0.00-0.20 K/uL Absolute Immature Granulocyte (auto 0.60 0-1 K/uL Nucleated Red Blood Cells 0.1 0.0-0.19 % Sodium Level 131 L 136-145 mmol/L Potassium Level 3.5 3.5-5.1 mmol/L Chloride Level 99 L 101-111 mmol/L Carbon Dioxide Level 28 21-32 mmol/L Blood Urea Nitrogen 7 7-18 mg/dL Creatinine 0.7 0.5-1.3 mg/dL Glomerular Filtration Rate Calc 97 >90 mL/min Random Glucose 88 70-105 mg/dL Total Calcium 8.3 L 8.5-10.1 mg/dL Total Bilirubin 0.3 0.2-1.0 mg/dL Aspartate Amino Transf (AST/SGOT) 19 10-37 U/L Alanine Aminotransferase (ALT/SGPT) 21 12-78 U/L Alkaline Phosphatase 107 50-136 U/L Total Protein 7.5 6.0-8.3 g/dL Albumin 2.6 L 3.5-5.0 g/dL REASON: PNA ORDERING PHYSICIAN: APRIL DESAI PROCEDURE: CXR1VW - CHEST 1VW CHEST 1VW HISTORY: Pneumonia COMPARISON: None FINDINGS: A frontal projection of the chest was obtained. There are bilateral lower lung reticular nodular pulmonary infiltrates. There are superimposed bilateral lower lung nodules. The heart is borderline enlarged. Port-A-Cath is seen entering from the right. No evidence of aortic calcification is seen. IMPRESSION: 1. Bilateral lower lung reticular nodular pulmonary infiltrates, nodules. There are superimposed bilateral lower lung nodules. ASSESSMENT: Healthcare associated pneumonia. Sepsis. Chemotherapy induced neutropenia improved. Esophageal cancer. Underlying immunosuppression. Oral Mucositis. Hyponatremia. PLAN: Continue fluconazole. Continue cefepime. Continue Mycelex. Continue magic mouthwash. We will follow up on the culture results. Follow Oncologist recommendations This case was reviewed and discussed with my supervising physician and the above assessment and plan was formulated and agreed upon. FRITZ MCGEE Aug 03, 2024 16:17
--- NOTE | 2024-08-03 23:31 | PN ---
INFECTIOUS DISEASE FOLLOWUP NOTE DATE OF SERVICE: 08/02/2024 SUBJECTIVE: The patient is seen and examined today. The patient looks clinically much better. No nausea, no vomiting. No bleeding tendencies. No palpitations or orthopnea. Denies dysuria or urinary frequency. PHYSICAL EXAMINATION: VITAL SIGNS: Temperature today 98.4. EYES: No icterus. Pupils are equal and reactive. HENT: No oral thrush seen. Moist oral mucosa. NECK: Supple. No JVD or thyromegaly. LUNGS: Good air entry. No rales. No rhonchi. CARDIOVASCULAR: S1, S2 regular. No murmur heard. ABDOMEN: Full, obese, soft, nontender. Bowel sounds present. CENTRAL NERVOUS SYSTEM: Awake, alert, oriented x 3. No focal deficits. SKIN: No rashes. No itchiness. LYMPHATIC: No peripheral lymphadenopathy. LABORATORY DATA: WBC 5.3. ASSESSMENT: A 73-year-old male with multiple problems, which include: * Sepsis. * Pneumonia. * Esophageal cancer. * Chemotherapy-induced mucositis. * Hyponatremia. * Neutropenia. * Obesity. PLAN: * Continue fluconazole. * Continue cefepime. * Continue isolation. * Continue pain management. * Continue antiemetics. * Monitor electrolytes and correct as needed. TID: [id number] RECEIPT: [id number]
[2024-08-04] VITALS (8 sets, daily range): BP systolic 134–145; BP diastolic 66–73; PULSE 80–95; RESP 16–20; TEMP 98.5–98.7; O2SAT 93–99
[2024-08-04 04:36] LABS: BASOPHILS # (AUTO) 0.07 K/uL (0.00-0.20); BASOPHILS % (AUTO) 0.2 % (0.0-5.0); EOSINOPHILS # (AUTO) 0.01 K/uL (0.00-0.70); HEMATOCRIT 33.3 % (42-54); IMMATURE GRANULOCYTE ABSOLUTE 2.02 K/uL (0-1); LYMPHOCYTES # (AUTO) 1.8 K/uL (1.0-4.8); LYMPHOCYTES % (AUTO) 4.9 % (21.0-51.0); MEAN CORPUSCULAR HEMOGLOBIN 30.6 pg (27.0-33.0); MEAN CORPUSCULAR HGB CONC 34.2 g/dL (32.0-36.0); MEAN CORPUSCULAR VOLUME 89.3 fL (79-99); MONOCYTES # (AUTO) 2.6 K/uL (0.1-1.0); MONOCYTES % (AUTO) 7.3 % (3.0-13.0); NEUTROPHILS # (AUTO) 29.3 K/uL (1.8-7.7); NUCLEATED RED BLOOD CELLS 0.1 % (0.0-0.19); PLATELET COUNT (AUTO) 291 K/uL (130-400); RED BLOOD CELL COUNT(AUTO) 3.73 MIL/uL (4.50-6.20); RED CELL DISTRIBUTION WIDTH 14.6 % (11.0-15.5)
[2024-08-04 04:39] LABS: WHITE BLOOD COUNT (AUTO) 35.8 K/uL (4.8-10.8)
[2024-08-04 05:51] LABS: BASOPHILS % (MANUAL) 1 % (0-2); LYMPHOCYTES % (MANUAL) 6 % (22-44); MONOCYTES % (MANUAL) 8 % (2-9); SEGMENTED NEUTROPHILS % 85 % (40-70); TOTAL CELLS COUNTED 100
[2024-08-04 05:52] LABS: MAN.DIFF COMMENT-IMPRESSION MANUAL DIFFERENTIAL
[2024-08-04 05:53] LABS: PLATELET MORPHOLOGY COMMENT ADEQUATE; WBC MORPHOLOGY VACUOLATION 1+
--- NOTE | 2024-08-04 07:18 | PN ---
SUBJECTIVE: Comfortable, afebrile. No fever or chills. No chest pain. No nausea or vomiting. He is off oxygen. OBJECTIVE: GENERAL: Currently comfortable in bed, not in distress. VITAL SIGNS: In the chart. HEENT: Normocephalic, atraumatic. LUNGS: Clear to auscultation. HEART: S1, S2 are distant. ABDOMEN: Soft, nontender. EXTREMITIES: No clubbing or cyanosis. LABORATORY DATA: WBC count 13.6, hemoglobin 10.8, platelets 261. Sodium 131, potassium 3.5, BUN 7, creatinine 0.7, calcium 8.3, albumin 2.6. ASSESSMENT AND PLAN: * Neutropenic fever, resolved. Cultures were positive for Diflucan. * Positive sputum culture for Kayla. Continue Diflucan. * Absolute neutropenia, chemotherapy-induced. Continue recommendations by Oncology. * Plan to discharge with clearance from Oncology. Follow up in my office tomorrow at 2:00 p.m. DOS: 08/03/2024 TID: [id number] RECEIPT: [id number] MTDD
--- NOTE | 2024-08-04 15:50 | PN ---
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 He remains on neutropenic precautions. He is set to be discharged today. we advise a follow up in 2 weeks with pulmonary clinic. Tracheal cultures have revealed Kayla. CXR reveals : Bilateral lower lung reticular nodular pulmonary infiltrates, nodules. There are superimposed bilateral lower lung nodules. Which are unchanged from prior studies and consistent with his history of metastasis. REVIEW OF SYSTEMS: 12 point ROS reviewed with patient. Pertinent positives mentioned above. Otherwise negative. PHYSICAL EXAM: GENERAL: alert, weak, awake oriented x 3 HEENT: EOMI, Sclera non icteric, moist mucosa , generalized rash to face and scalp NECK: Supple, no JVD, trachea midline LUNGS: diminished breath sounds bilaterally. No wheezes HEART: Regular rate and rhythm. Normal S1 and S2, without murmurs ABD: Abdomen soft, nontender. Bowel sounds present EXT: No clubbing cyanosis or edema NEURO: Alert and oriented to person, follows commands Vital Signs (last 8hr) Date Time Temp Pulse Resp B/P (MAP) Pulse Ox O2 Delivery O2 Flow Rate FiO2 08/04/24 12:00 98.6 95 20 145/73 100 08/04/24 11:27 84 16 08/04/24 08:09 98.8 91 20 143/71 93 LABS: Hematology Labs: Test 08/04/24 03:40 Range/Units White Blood Count 35.8 #*H 4.8-10.8 K/uL Red Blood Count 3.73 L 4.50-6.20 MIL/uL Hemoglobin 11.4 L 14.0-18.0 g/dL Hematocrit 33.3 L 42-54 % Mean Corpuscular Volume 89.3 79-99 fL Mean Corpuscular Hemoglobin 30.6 27.0-33.0 pg Mean Corpuscular Hemoglobin Concent 34.2 32.0-36.0 g/dL Red Cell Distribution Width 14.6 11.0-15.5 % Platelet Count 291 130-400 K/uL Mean Platelet Volume 9.3 7.5-10.5 fL Immature Granulocyte % (Auto) 5.6 H 0-1 % Neutrophils (%) (Auto) 82.0 H 40.0-77.0 % Lymphocytes (%) (Auto) 4.9 L 21.0-51.0 % Monocytes (%) (Auto) 7.3 3.0-13.0 % Eosinophils (%) (Auto) 0.0 0.0-8.0 % Basophils (%) (Auto) 0.2 0.0-5.0 % Neutrophils # (Auto) 29.3 H 1.8-7.7 K/uL Lymphocytes # (Auto) 1.8 1.0-4.8 K/uL Monocytes # (Auto) 2.6 H 0.1-1.0 K/uL Eosinophils # (Auto) 0.01 0.00-0.70 K/uL Basophils # (Auto) 0.07 0.00-0.20 K/uL Absolute Immature Granulocyte (auto 2.02 H 0-1 K/uL Segmented Neutrophils % 85 H 40-70 % Lymphocytes % (Manual) 6 L 22-44 % Monocytes % (Manual) 8 2-9 % Basophils % (Manual) 1 0-2 % Nucleated Red Blood Cells 0.1 0.0-0.19 % Differential Comment MANUAL DIFFERENTIAL White Cell Morphology Comment VACUOLATION 1+ Platelet Morphology Comment ADEQUATE Red Blood Cell Morphology See comments Chemistry Labs: Test 08/03/24 11:42 Range/Units Sodium Level 131 L 136-145 mmol/L Potassium Level 3.5 3.5-5.1 mmol/L Chloride Level 99 L 101-111 mmol/L Carbon Dioxide Level 28 21-32 mmol/L Blood Urea Nitrogen 7 7-18 mg/dL Creatinine 0.7 0.5-1.3 mg/dL Glomerular Filtration Rate Calc 97 >90 mL/min Random Glucose 88 70-105 mg/dL Total Calcium 8.3 L 8.5-10.1 mg/dL Total Bilirubin 0.3 0.2-1.0 mg/dL Aspartate Amino Transf (AST/SGOT) 19 10-37 U/L Alanine Aminotransferase (ALT/SGPT) 21 12-78 U/L Alkaline Phosphatase 107 50-136 U/L Total Protein 7.5 6.0-8.3 g/dL Albumin 2.6 L 3.5-5.0 g/dL DIAGNOSTICS / RADIOLOGY RESULTS: [ ] PLAN Follow oncology recommendations Broad spectrum antibiotics follow ID recs panculture Negative for thyphoid, Influenza A and B, covid and strep CT of the chest reviewed + metastatic findings NEURO: Minimize central acting medications as possible. Maintain fall precautions, adequate lighting during the day PULMONARY: Supplemental 02 as needed. Maintain aspiration precautions at all times CARDIOVASCULAR: Follow hemodynamics. Vital signs per facility protocol GI & NUTRITION: Continue with nutritional support. Continue stool softeners and laxatives as needed. KIDNEYS & ELECTROLYTES: Strict monitoring of intake, output and overall fluid balance. Avoid nephrotoxic medications to the extent possible. Medications to be dosed according to renal function. Monitor electrolytes and replace as needed ENDOCRINE: Maintain blood glucose between 100-180 at all times. Hypoglycemia protocol in place INFECTIOUS DISEASE: Trend temperature, WBC and procalcitonin level Follow cultures, deescalate antibiotics as soon as possible. Panculture if new onset fever ONCOLOGY/HEMATOLOGY/COAGULATION: Monitor for s/s of bleeding Monitor hemoglobin, coagulation studies as needed SKIN: Pressure ulcer prevention per facility protocol Specialty mattress ORTHO/REHAB: Continue PT/OT Prophylaxis: Continue GI and DVT prophylaxis Code Status: Full Resuscitation Disposition: TBD Other: Total patient care time exceeds 35 minutes excluding all procedures. APRIL DESAI Aug 04, 2024 15:50
--- NOTE | 2024-08-04 16:24 | PN ---
INFECTIOUS DISEASE PROGRESS NOTE Date of Service: Aug 04, 2024 SUBJECTIVE: This is a 73 year old male patient was seen and examined at bedside in room 407. Patient is awake, alert and oriented x3. No fever this morning, temperature is 98.8. The WBC went up to 35.8 and the Granix has been discontinued. From Infectious Disease standpoint no antibiotic is needed on discharge. PHYSICAL EXAM EYES: Anicteric. Pupils equal and reactive. HENT: No oral thrush seen, moist, Oral mucositis. NECK: Supple, no JVD or thyromegaly. LUNGS: Good air entry. No rales, no rhonchi. CARDIOVASCULAR: S1, S2 regular. No murmur heard. ABDOMEN: Soft, non tender, bowel sounds present, no organomegaly. CENTRAL NERVOUS SYSTEM: Awake, alert, oriented x 3. SKIN: No rashes, no swelling. LYMPHATICS: No peripheral lymphadenopathy. MUSCULOSKELETAL: No joint swelling, erythema or tenderness. EXTREMITIES: No cyanosis or clubbing. BACK: No deformity, no pressure ulcer. GENITOURINARY: No dysuria or hematuria. Vital Sign (Last 12 Hours) 08/04/24 08/04/24 08/04/24 08/04/24 06:42 06:44 08:09 11:27 Temp 98.8 Pulse 80 80 91 84 Resp 16 20 16 B/P (MAP) 143/71 Pulse Ox 93 O2 Delivery N/A Room Air FiO2 21 08/04/24 12:00 Temp 98.6 Pulse 95 Resp 20 B/P (MAP) 145/73 Pulse Ox 100 Intake & Output (last 24hrs) 08/03/24 08/03/24 08/04/24 15:00 23:00 07:00 Intake Total 1800 ml Balance 1800 ml LABS: Laboratory: Test 08/04/24 03:40 08/03/24 11:42 Range/Units White Blood Count 35.8 #*H 4.8-10.8 K/uL Red Blood Count 3.73 L 4.50-6.20 MIL/uL Hemoglobin 11.4 L 14.0-18.0 g/dL Hematocrit 33.3 L 42-54 % Mean Corpuscular Volume 89.3 79-99 fL Mean Corpuscular Hemoglobin 30.6 27.0-33.0 pg Mean Corpuscular Hemoglobin Concent 34.2 32.0-36.0 g/dL Red Cell Distribution Width 14.6 11.0-15.5 % Platelet Count 291 130-400 K/uL Mean Platelet Volume 9.3 7.5-10.5 fL Immature Granulocyte % (Auto) 5.6 H 0-1 % Neutrophils (%) (Auto) 82.0 H 40.0-77.0 % Lymphocytes (%) (Auto) 4.9 L 21.0-51.0 % Monocytes (%) (Auto) 7.3 3.0-13.0 % Eosinophils (%) (Auto) 0.0 0.0-8.0 % Basophils (%) (Auto) 0.2 0.0-5.0 % Neutrophils # (Auto) 29.3 H 1.8-7.7 K/uL Lymphocytes # (Auto) 1.8 1.0-4.8 K/uL Monocytes # (Auto) 2.6 H 0.1-1.0 K/uL Eosinophils # (Auto) 0.01 0.00-0.70 K/uL Basophils # (Auto) 0.07 0.00-0.20 K/uL Absolute Immature Granulocyte (auto 2.02 H 0-1 K/uL Segmented Neutrophils % 85 H 40-70 % Lymphocytes % (Manual) 6 L 22-44 % Monocytes % (Manual) 8 2-9 % Basophils % (Manual) 1 0-2 % Nucleated Red Blood Cells 0.1 0.0-0.19 % Differential Comment MANUAL DIFFERENTIAL White Cell Morphology Comment VACUOLATION 1+ Platelet Morphology Comment ADEQUATE Red Blood Cell Morphology See comments Sodium Level 131 L 136-145 mmol/L Potassium Level 3.5 3.5-5.1 mmol/L Chloride Level 99 L 101-111 mmol/L Carbon Dioxide Level 28 21-32 mmol/L Blood Urea Nitrogen 7 7-18 mg/dL Creatinine 0.7 0.5-1.3 mg/dL Glomerular Filtration Rate Calc 97 >90 mL/min Random Glucose 88 70-105 mg/dL Total Calcium 8.3 L 8.5-10.1 mg/dL Total Bilirubin 0.3 0.2-1.0 mg/dL Aspartate Amino Transf (AST/SGOT) 19 10-37 U/L Alanine Aminotransferase (ALT/SGPT) 21 12-78 U/L Alkaline Phosphatase 107 50-136 U/L Total Protein 7.5 6.0-8.3 g/dL Albumin 2.6 L 3.5-5.0 g/dL ASSESSMENT: Healthcare associated pneumonia. Sepsis. Chemotherapy induced neutropenia improved. Esophageal cancer. Underlying immunosuppression. Oral Mucositis, resolving. Hyponatremia. PLAN: No antibiotics needed on discharge from Infectious Disease standpoint. This case was reviewed and discussed with my supervising physician and the above assessment and plan was formulated and agreed upon. ATTESTATION BY PHYSICIAN I have seen and examined the patient. I reviewed the documentation, medical decision making, and treatment plan as noted by the mid-level provider above. I agree with the findings and plan of care. ANA M MELLO MD, [facility] Aug 04, 2024 16:24
== END 2024-08-04 16:15 | disposition home or self-care (01) | DRG 871 ==
LOC: EDH 12:22 → EDHIP 16:51 → 4BH 07-29 17:50
PROVIDERS: ADMIT Internal Medicine; ATTEND Internal Medicine
DX: A41.9 Sepsis, unspecified organism (principal); J18.9 Pneumonia, unspecified organism; R65.21 Severe sepsis with septic shock; C15.9 Malignant neoplasm of esophagus, unspecified; D84.9 Immunodeficiency, unspecified; E87.1 Hypo-osmolality and hyponatremia; D61.818 Other pancytopenia; C78.01 Secondary malignant neoplasm of right lung; C78.02 Secondary malignant neoplasm of left lung; Z20.822 Contact with and (suspected) exposure to COVID-19; I10 Essential (primary) hypertension; D70.1 Agranulocytosis secondary to cancer chemotherapy; K12.30 Oral mucositis (ulcerative), unspecified; R62.7 Adult failure to thrive; T45.1X5A Adverse effect of antineoplastic and immunosuppressive drugs, initial encounter; E66.9 Obesity, unspecified; Z51.11 Encounter for antineoplastic chemotherapy; K12.31 Oral mucositis (ulcerative) due to antineoplastic therapy; Z85.01 Personal history of malignant neoplasm of esophagus; Y95 Nosocomial condition; Z82.49 Family history of ischemic heart disease and other diseases of the circulatory system; Y92.89 Other specified places as the place of occurrence of the external cause; Z79.899 Other long term (current) drug therapy
CPT/HCPCS: 36415; 71045; 71250; 80048; 80053; 81001; 82550; 83605; 83880; 84145; 84443; 84484; 85025; 85610; 86000; 86140; 87040; 87071; 87086; 87205; 87635; 87804; 87880; 93005; 94640; 94664; 96365; 99291; G0378; J0456; J0692; J0696; J1171; J1450; J1650; J1447; J3370